=== PATIENT | female | born 1970 | race American Indian/Alaskan Native ===

== ENCOUNTER 2024-04-20 21:52 | Inpatient (IN) | payer SELFPAY ==
--- NOTE | ~2024-04-20 | CT_ITS ---
EXAMINATION: CT ABDOMEN AND PELVIS WITH CONTRAST CLINICAL INFORMATION: Abdominal pain. COMPARISON: None available. TECHNIQUE: Multidetector volumetric images were obtained from the superior aspect of the liver through the pubic symphysis following administration 85 mL of Omnipaque 350 intravenous contrast. Sagittal and coronal reformatted images were obtained on the technologist's workstation. Oral contrast: No This CT examination was performed using dose optimization techniques as appropriate, variously including the following: *Automated exposure control *Adjustment of mA and/or kV according to patient size (this includes techniques or standardized protocols for targeted exams where dose is matched to indication/reason for exam; i.e. extremities or head) *Use of iterative reconstruction technique DLP: 372 mGy-cm FINDINGS: LUNG BASES: The visualized lung bases are unremarkable. LIVER, GALLBLADDER, AND BILIARY TREE: The liver is normal in size, shape, and attenuation. No focal hepatic lesion or biliary ductal dilatation is present. The gallbladder is unremarkable with no evidence of radiopaque gallstones, gallbladder wall thickening, or obvious pericholecystic inflammatory changes. PANCREAS: Unremarkable. SPLEEN: Unremarkable. ADRENAL GLANDS: Unremarkable. KIDNEYS AND URETERS: The kidneys are normal in size, shape, and attenuation. No hydronephrosis, hydroureter, or calculi seen. No perinephric stranding. There is a subcentimeter left renal hypodensity likely a small cyst. BLADDER: Unremarkable. GASTROINTESTINAL TRACT: The small and large bowel are unremarkable. The appendix is not seen. ABDOMINAL WALL: No significant hernia is appreciated. LYMPH NODES: Normal. VASCULAR: Unremarkable. PELVIC VISCERA: Unremarkable. OSSEOUS STRUCTURES: Unremarkable. CT/CT abdomen pelvis w IV con IMPRESSION: No significant abnormality. Fleischner guidelines were followed.
--- NOTE | 2024-04-20 22:29 | PC.NURSE ---
Pt transferred from [facility] 2205 on a CV. Skin check performed, pt has swollen left foot and open area on left toe. Hospitalist Dr. Barnett notified. Pt currently withrawing from Fentanyl, last use was 12 grams 48 hours ago. Pt c/o body aches and nausea/vomiting, Dr. Dumont notified for orders.
[2024-04-20 22:33] VITALS: BMI 20.9
[2024-04-20 22:54] VITALS: BP 153/86; PULSE 84; TEMP 36.6; O2SAT 97
[2024-04-20] MEDS: Buprenorphine HCL 2 MG TAB.SUBL 4 MG SUBLINGUAL (23:50)
[2024-04-20] MEDS: hydrOXYzine HCL 25 MG TABLET PO (23:50)
[2024-04-21] VITALS (13 sets, daily range): BP systolic 132–185; BP diastolic 78–101; PULSE 58–88; RESP 14–18; TEMP 36.4–37.2; O2SAT 98–100
--- NOTE | 2024-04-21 01:51 | PC.ADMIT ---
Nubia Gunderson is a 53yo female admitted from [facility] 2205 on a CV. Skin check performed, pt has swollen left foot and open area on left toe. Hospitalist Dr. Barnett notified. Pt currently withrawing from Fentanyl, last use was 12 grams 48 hours ago. Pt c/o body aches and nausea/vomiting, Dr. Dumont notified for orders. Subutex 4mg one time order put in and administered at 2300. Pt was reported to have attempted suicide via intentional overdose on Fentanyl. She was triggered due to feeling depressed saying I have no one but a dog . Patient states that she has been having suicidal thoughts for 2 months. On unit admission process, Pt is alert and oriented, anxious and irritable. She was unable to cooperate with RN, saying I want something for my withdrawal and I am feeling body pains . She showered , took PRN Meds and went to bed. Pt did not sign/fill any release of information forms, my contact lists, menu and statement of understanding form. Treatment plan and safety tools initiated but yet to be signed. Pt was placed on COWS Q-shift for opiates withdrawal risks and 5 minutes check for safety.
[2024-04-21] MEDS: hydrOXYzine HCL 25 MG TABLET PO ×2 (05:33→18:11)
[2024-04-21] MEDS: cloNIDine HCL 0.1 MG TABLET PO ×3 (05:34→21:42)
--- NOTE | 2024-04-21 05:37 | PC.NURSE ---
Pt awake at 0400, c/o body pain, increase anxiety and withdrawal. V/s checked reads T-97.8, P-88, BP-181/92. On-call provider notified, he said its not withdrawal and wants RN to give PRN Clonidine0.1mg. Clonidine and Atarax given at 0530.
--- NOTE | 2024-04-21 06:57 | PC.NURSE ---
V/S rechecked at 0620 reads T-97.6, p-60, BP-154/88, R-16. Pt still requesting for Subutex, sitting calmly in the kitchen area.
--- NOTE | 2024-04-21 08:45 | P.CONHOSP_ITS ---
History of Present Illness Data of Consult Service Date: 04/21/24 Primary Care Provider: Unknown Physician HPI 53-year-old female from [place] with a history of opioid use disorder who specifically endorses Fentanyl use. She denies chronic medical issues and is admitted for management of opioid withdrawal. Her blood pressure has been elevated; she denies a history of HTN. She has been prescribed Clonidine for withdrawal and was given Subutex one time for withdrawal symptoms. She is asking for more Subutex, with her blood pressure earlier at 185/101 and a recheck at 144/80. She was a bit anxious but, for the most part, calm and cooperative. Review of Systems 2 Review of Systems: has body ache, headache, no abdominal pain, no n/v, no chest pain, all other systems reviewed and negative PMFSH Social History Household Members: None Housing: Apartment Do you presently have visiting nurse or other home services: No Patient Tobacco Use Status: Current everyday Tobacco user Tobacco use type: Cigarette Smoked in Last 30 Days: Yes e-Cigarette/Vaping Use: Never Used Patient Interested in Nicotine Replacement: Yes Second Hand Smoke Exposure: No Use of substances other than those prescribed or required for medical reasons: Yes Substance Use Type: Heroin and Opiates Substance Use Frequency: Daily Last Used Substance: Just Prior to Admission Currently Displaying Signs/Symptoms of Drug Intoxication Withdrawal: No Any prior treatment program specific to substance use: No Have you been hit, kicked, punched, or otherwise hurt by someone within the past year? If so, by whom?: No Do you feel safe in your current relationship?: No Current Relationship Is there a partner from a previous relationship who is making you feel unsafe now?: No Are you made to feel afraid or neglected: No Advance Directives: No Advance Directives Information Provided: No Do you have thoughts of harming others: None Do you have a plan to hurt others: No Plan Recently lost weight without trying: No Eating poorly because of decreased appetite: No Nutrition Risks: No Nutritional Risk Patient : No : No Poor oral hygiene: No Meds Allergies Allergy/AdvReac Type Severity Reaction Status Date / Time latex Allergy Unknown Verified 04/20/24 22:36 meperidine Allergy Unknown Verified 04/20/24 22:36 morphine Allergy Unknown Verified 04/20/24 22:36 Penicillins Allergy Unknown Verified 04/20/24 22:36 Active Medications: Current Medications Acetaminophen (Acetaminophen 325 Mg Tablet) 650 mg PO Q6H PRN PRN Reason: Headache/Pain Mild Scale (1-3) Al Hydroxide/Mg Hydroxide (Magnesium Hydrox/Alum Hydrox 30 Ml Oral.Susp) 30 ml PO Q6H PRN PRN Reason: Heartburn/Nausea Clonidine HCl (Clonidine Hcl 0.1 Mg Tablet) 0.1 mg PO Q4H PRN; Protocol PRN Reason: Palpitations Last Admin: 04/21/24 08:17 Dose: 0.1 mg Hydroxyzine HCl (Hydroxyzine Hcl 25 Mg Tablet) 25 mg PO Q6H PRN PRN Reason: Anxiety Last Admin: 04/21/24 05:33 Dose: 25 mg Magnesium Hydroxide (Milk Of Magnesia 30 Ml Oral.Susp) 30 ml PO DAILY PRN PRN Reason: Constipation Nicotine Polacrilex (Nicotine Polacrilex 2 Mg Gum) 2 mg BUCCAL Q2H PRN PRN Reason: Nicotine Cravings Ondansetron HCl (Ondansetron Odt 8 Mg Tab.Rapdis) 8 mg TRANSLINGU Q8H PRN PRN Reason: Nausea and Vomiting Trazodone HCl (Trazodone Hcl 50 Mg Tablet) 50 mg PO BEDTIME MRX1 PRN PRN Reason: Insomnia Home Medications ?Medication ?Instructions ?Recorded ?Confirmed ?Last Taken ?Type sulfamethoxazole 800 1 tab PO Q12H 04/21/24 04/21/24 Unknown History mg-trimethoprim 160 mg tablet Physical Exam 2 Vital Signs and Narrative: Vital Signs: Last Vital Signs Temp 99 F 04/21/24 08:00 Pulse 58 04/21/24 08:00 Resp 18 04/21/24 08:00 BP 185/101 H 04/21/24 08:17 Pulse Ox 100 04/21/24 08:00 O2 Del Method Room Air 04/21/24 08:00 BMI result Body Mass Index 20.9 Const: Other: Constitutional: Alert, in no distress, overweight. Mental Status: Oriented to person, place and time. Eyes: Pupils are equal, round and reactive to light. Respiratory: Clear to auscultation. No wheezing, rales or rhonchi. Cardiovascular: S1 S2 regular. No murmurs, rubs or gallops. Gastrointestinal: Abdomen soft, non-tender, non-distended. Normal bowel sounds.? Neurologic: Cranial nerves II-XII grossly intact. No focal neurological deficits. Moves all extremities spontaneously.? Skin: No rashes or lesions.? Musculoskeletal: No cyanosis or clubbing. Psychiatric: Normal mood and affect? Results Labs 04/21/24 09:04 04/21/24 09:04 Assessment and Plan (1) Opioid withdrawal: Status: Acute (2) Elevated blood pressure reading: Status: Acute Plan Pt with opioid use disorder and withdrawl -Management per Psych and addiction med -Check Urine drug screen for other substance Elevated BP--could be in part d/t withdrawal from opioid or underlying untreated HTN -Will closely observe and once adequately treated for withdrawal and BPs remains high would suggest starting Norvasc, starting with 2.5 mg daily and adjust as needed. Hypokalemia--oral K supplement Thanks, will follow as needed
[2024-04-21 09:11] LABS: MANUAL DIFF FLAG NO
[2024-04-21 09:15] LABS: Basophils Percent Auto 0.4 % (0-2); Eosinophils Absolute Auto 0.1 X10*3/uL (0.0-0.4); Eosinophils Percent Auto 0.8 % (0-4); Hematocrit 32.1 % (37.0-47.0); Hemoglobin 11.2 g/dl (12.0-16.0); Imm Gran Abs Auto 0.09 X10*3/uL (0.00-0.03); Imm Gran Pct Auto 0.8 % (0.0-0.4); Lymphocytes Absolute Auto 2.1 X10*3/uL (1.2-4.9); Lymphocytes Percent Auto 19.4 % (20-40); Mean Corpuscular HGB Conc 34.9 g/dl (31.0-35.0); Mean Corpuscular Hemoglobin 29.9 pg (27.0-33.0); Mean Corpuscular Volume 85.6 fL (80.0-98.0); Mean Platelet Volume 9.5 fL (9.4-12.3); Monocytes Absolute Auto 0.6 X10*3/uL (0.1-1.2); Monocytes Percent Auto 5.8 % (2-11); Neutrophils Absolute Auto 7.9 x10*3/uL (2.0-8.3); Neutrophils Percent Auto 72.8 % (45-73); Platelet Count 360 X10*3/uL (160-400); Red Blood Count 3.75 X10*6/uL (4.20-5.50); White Blood Count 10.9 X10*3/uL (4.8-10.8)
[2024-04-21] MEDS: Buprenorphine HCL 8 MG TAB.SUBL SUBLINGUAL ×3 (09:26→15:29)
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
[2024-04-21 09:31] LABS: Alanine Aminotransferase 9 U/L (0-31); Albumin Level 3.9 g/dL (3.5-5.0); Alkaline Phosphatase 63 U/L (39-117); Anion Gap 12 (12-20); Aspartate Amino Transferase 14 U/L (5-31); Bilirubin Total 0.5 mg/dL (0.0-1.0); Blood Urea Nitrogen 17 mg/dL (9-16); Calcium 8.6 mg/dL (8.4-10.2); Carbon Dioxide 25 mmol/L (22-29); Chloride 104 mmol/L (96-108); Cholesterol 164 mg/dL (<200); Creatinine Clr Calc Pharmacy 68.6; Estimated Glomerular Filt Rate > 60; Glucose Fasting 96 mg/dL (60-99); HDL Cholesterol 33 mg/dL (>40); LDL Cholesterol Calculated 109 mg/dL (<100); Potassium 3.1 mmol/L (3.3-5.1); Sodium 138 mmol/L (135-145); Total Protein 7.2 g/dL (6.5-8.0); Triglycerides 110 mg/dL (<150)
--- NOTE | 2024-04-21 11:04 | PC.NURSE ---
Pt BP was 185/101 at 0815, given dose of clonidine 0.1 mg early per Sheeba Mcgregor NP and Mehdi Vargas MD made aware. Addiction consult placed, medication ordered and given with positive effect.
--- NOTE | 2024-04-21 12:11 | PC.NURSE ---
Vitals rechecked appox 30 min after clonidine given, 135/78
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
[2024-04-21] MEDS: Nicotine 21 MG PATCH.TD24 TRANSDERMA (12:35)
--- NOTE | 2024-04-21 19:02 | PC.NURSE ---
Nubia refused Potassium Chloride packet. Laxmi Leigh NP made aware.
[2024-04-21] MEDS: traZODone HCL 50 MG TABLET PO (21:42)
[2024-04-21] MEDS: Prazosin HCL 1 MG CAPSULE PO (21:43)
[2024-04-22] VITALS (9 sets, daily range): BP systolic 88–166; BP diastolic 56–108; PULSE 62–97; RESP 17; TEMP 36.6–37.4; O2SAT 98
--- NOTE | 2024-04-22 | ECG_ITS ---
Test Reason : chest kelley Blood Pressure : / mmHG Vent. Rate : 073 BPM Atrial Rate : 073 BPM P-R Int : 108 ms QRS Dur : 090 ms QT Int : 404 ms P-R-T Axes : 075 068 078 degrees QTc Int : 445 ms Sinus rhythm with sinus arrhythmia with short TX Otherwise normal ECG No previous ECGs available Referred By: Dianne Barnett Electronically Signed By:Issac Jean Baptiste
--- NOTE | 2024-04-22 05:10 | PM.EVENT ---
Event Note Date of Service: 04/22/24 Event Note: Nurse reported patient having chest pain. Hemodynamically stable. Has nausea. Will obtain EKG and troponin. Time Spent With Patient Time: Total time managing care of this patient today ____ minutes.
[2024-04-22] MEDS: Ondansetron ODT 8 MG TAB.RAPDIS TRANSLINGU (05:22)
[2024-04-22] MEDS: Buprenorphine HCL 8 MG TAB.SUBL SUBLINGUAL ×2 (05:23→12:00)
[2024-04-22] MEDS: Omeprazole 20 MG CAPSULE.DR PO (05:24)
--- NOTE | 2024-04-22 05:30 | PC.NURSE ---
Addendum entered by Anthony Boone RN 04/22/24 05:42: retake of vitals at 0540 are 98.6 77 18 97% 143/79 Patient reports not feeling any better and feels like she has a temp. Hot/Cold. Original Note: Patient c/o constant sharp chest pain that doesnt radiate and doesnt increase with breathing at 0510. Both covering hospitalist as well as psychiatrist notified. Stat EKG, Labs, and ordered medications zofran and Subutex administered. Subutex was due at 0800 but allowed early administration. H.R 80, b.p 152/108. Patient about an hour earlier stated she feels like she is going through withdrawals. Currently she states she is very nauseous, has a really bad headache, and feels really bad . Will continue to monitor.
[2024-04-22] MEDS: cloNIDine HCL 0.1 MG TABLET PO ×3 (06:01→20:25)
[2024-04-22 08:29] LABS: Troponin-I High Sensitivity 5.2 ng/L (<3.5-17.0)
--- NOTE | 2024-04-22 08:30 | PC.NURSE ---
Pt BP 166/96, temp 99.3, pulse 62. Reports nausea, vomiting and chest pain on right side. EKG done on previous shift, Sinus rhythm with sinus arrhythmia with short UT. Troponin high sensitivity 5.2 Jax Tovar MD made aware. Repeat labs in 2 hours. No further reccomendations made.
--- NOTE | 2024-04-22 08:53 | P.PNPSI_ITS ---
Subjective Subjective Date of Service: 04/22/24 Reason For Visit: Major Depressive d/o Opioid dependence uncomplicat Subjective Notes: Conditional Voluntary Interim History: Pt continues to present with emesis, nausea, anxious mood, muscle aches secondary to opioid withdrawal. Consulted with chemistry specialist, Priscila Shah who recommend increasing subotex to 16mg po BID. recheck electrolytes. K was marginally low. Review of Systems Review of Systems has body ache, headache, no abdominal pain, no n/v, no chest pain, all other systems reviewed and negative Constitutional: Reports as per HPI Eyes: Reports as per HPI Reports as per HPI Cardiovascular: Reports as per HPI Respiratory: Reports as per HPI Gastrointestinal: Reports as per HPI Musculoskeletal: Reports as per HPI Skin/Breast: Reports as per HPI Reports as per HPI Psychiatric: Reports as per HPI Endocrine: Reports as per HPI Hematologic/Lymphatic: Reports as per HPI Allergic/Immunologic: Reports as per HPI Mental Status Exam Mental Status Exam Narrative: Pt is alert and oriented x 3; behavior is cooperative and calm; dressed in casual attire; mood is described as depressed ; eye contact appropriate; Speech is normal rate, volume and not pressured; thought process is organized and goal directed; Thought content is on tx; otherwise pertinent to relevant topics and without any delusional content, paranoid ideations or grandiosity; denies SI/HI/VH/AH. Diagnostics Vital Signs (24Hr): Vital Signs - 24 hr 04/21/24 10:00 04/21/24 19:58 04/21/24 20:00 Temperature 98.2 F 98.2 F Pulse Rate 67 67 Respiratory Rate 14 18 Blood Pressure 135/78 132/86 132/86 Pulse Oximetry 98 98 Oxygen Delivery Method Room Air Room Air 04/21/24 21:42 04/21/24 21:43 04/22/24 05:28 Temperature Pulse Rate 80 Respiratory Rate Blood Pressure 132/86 132/86 152/108 H Pulse Oximetry Oxygen Delivery Method 04/22/24 06:01 04/22/24 08:00 Temperature 99.3 F Pulse Rate 62 Respiratory Rate Blood Pressure 143/79 H 166/96 H Pulse Oximetry 98 Oxygen Delivery Method Room Air BMI result Body Mass Index 20.9 Labs 04/21/24 09:04 04/23/24 11:48 Labs: Laboratory Results - last 48 hr 04/21/24 04/22/24 09:04 07:58 WBC 10.9 H RBC 3.75 L Hgb 11.2 L Hct 32.1 L MCV 85.6 MCH 29.9 MCHC 34.9 RDW 13.0 Plt Count 360 MPV 9.5 Immature Gran % (Auto) 0.8 H Neut % (Auto) 72.8 Lymph % (Auto) 19.4 L Imperial % (Auto) 5.8 Eos % (Auto) 0.8 Baso % (Auto) 0.4 Lymph # (Auto) 2.1 Imperial # (Auto) 0.6 Eos # (Auto) 0.1 Baso # (Auto) 0.0 Abs Immat Gran (auto) 0.09 H Absolute Neuts (auto) 7.9 Absolute Nucleated RBC 0.000 Nucleated RBC % (auto) 0.0 Sodium 138 Potassium 3.1 L Chloride 104 Carbon Dioxide 25 Anion Gap 12 BUN 17 H Creatinine 0.75 Estim Creat Clear Calc 68.6 Estimated GFR > 60 Fasting Glucose 96 Calcium 8.6 Total Bilirubin 0.5 AST 14 ALT 9 Alkaline Phosphatase 63 Troponin I High Sens 5.2 Total Protein 7.2 Albumin 3.9 Triglycerides 110 Cholesterol 164 LDL Cholesterol, Calc 109 H HDL Cholesterol 33 L Medications Medications Current Medications Acetaminophen (Acetaminophen 325 Mg Tablet) 650 mg PO Q6H PRN PRN Reason: Headache/Pain Mild Scale (1-3) Al Hydroxide/Mg Hydroxide (Magnesium Hydrox/Alum Hydrox 30 Ml Oral.Susp) 30 ml PO Q6H PRN PRN Reason: Heartburn/Nausea Buprenorphine HCl (Buprenorphine Hcl 8 Mg Tab.Subl) 8 mg SUBLINGUAL TID@0800,1300,1800 [facility] Last Admin: 04/22/24 05:23 Dose: 8 mg Clonidine HCl (Clonidine Hcl 0.1 Mg Tablet) 0.1 mg PO TID [facility]; Protocol Last Admin: 04/22/24 06:01 Dose: 0.1 mg Duloxetine HCl (Duloxetine Hcl 20 Mg Capsule.Dr) 20 mg PO DAILY [facility] Hydroxyzine HCl (Hydroxyzine Hcl 25 Mg Tablet) 25 mg PO Q6H PRN PRN Reason: Anxiety Last Admin: 04/21/24 18:11 Dose: 25 mg Magnesium Hydroxide (Milk Of Magnesia 30 Ml Oral.Susp) 30 ml PO DAILY PRN PRN Reason: Constipation Nicotine (Nicotine 21 Mg Patch.Td24) 21 mg TRANSDERMA DAILY [facility] Last Admin: 04/21/24 12:35 Dose: 21 mg Nicotine Polacrilex (Nicotine Polacrilex 2 Mg Gum) 2 mg BUCCAL Q2H PRN PRN Reason: Nicotine Cravings Omeprazole (Omeprazole 20 Mg Capsule.Dr) 20 mg PO DAILY@0630 [facility] Last Admin: 04/22/24 05:24 Dose: 20 mg Ondansetron HCl (Ondansetron Odt 8 Mg Tab.Rapdis) 8 mg TRANSLINGU Q8H PRN PRN Reason: Nausea and Vomiting Last Admin: 04/22/24 05:22 Dose: 8 mg Prazosin HCl (Prazosin Hcl 1 Mg Capsule) 1 mg PO BEDTIME [facility]; Protocol Last Admin: 04/21/24 21:43 Dose: 1 mg Trazodone HCl (Trazodone Hcl 50 Mg Tablet) 50 mg PO BEDTIME MRX1 PRN PRN Reason: Insomnia Last Admin: 04/21/24 21:42 Dose: 50 mg Allergies Allergies Allergy/AdvReac Type Severity Reaction Status Date / Time latex Allergy Unknown Verified 04/20/24 22:36 meperidine Allergy Unknown Verified 04/20/24 22:36 morphine Allergy Unknown Verified 04/20/24 22:36 Penicillins Allergy Unknown Verified 04/20/24 22:36 Assessment & Plan Assessment & Plan (1) MDD (major depressive disorder), recurrent episode: Status: Acute Code(s): F33.9 - Major depressive disorder, recurrent, unspecified (2) PTSD (post-traumatic stress disorder): Status: Acute Code(s): F43.10 - Post-traumatic stress disorder, unspecified (3) Opioid use disorder: Status: Acute Code(s): F11.90 - Opioid use, unspecified, uncomplicated Plan Patient is a 53-year-old female with history of MDD, PTSD, opiate use disorder, who was brought in on a section 12 after a suicide attempt by trying to overdose on on fentanyl secondary to increased depression. Plan: 04/22 flexeril for muscle aches, increase subotex to 16mg po BID. monitor hydration due to ongoing emesis Reason for continued inpatient stay Substantial Risk for: inability to function Time Spent With Patient Time: Total time managing care of this patient today ____ minutes.
--- NOTE | 2024-04-22 10:26 | PC.NURSE ---
Rechecked pt's BP at 0940, 138/99 and pulse 66
[2024-04-22 11:57] LABS: Anion Gap 21 (12-20); Blood Urea Nitrogen 19 mg/dL (9-16); Calcium 8.7 mg/dL (8.4-10.2); Carbon Dioxide 20 mmol/L (22-29); Chloride 99 mmol/L (96-108); Creatinine Clr Calc Pharmacy 65.1; Estimated Glomerular Filt Rate > 60; Glucose Random 68 mg/dL (60-115); Magnesium 1.8 mg/dL (1.6-2.6); Potassium 3.5 mmol/L (3.3-5.1); Sodium 136 mmol/L (135-145)
[2024-04-22 12:00] LABS: Troponin-I High Sensitivity 4.4 ng/L (<3.5-17.0)
[2024-04-22] MEDS: Famotidine 20 MG TABLET PO ×2 (15:05→20:26)
[2024-04-22] MEDS: Cyclobenzaprine HCl 5 MG TABLET PO ×2 (15:05→20:25)
[2024-04-22] MEDS: Nicotine 21 MG PATCH.TD24 TRANSDERMA (15:13)
[2024-04-22] MEDS: Buprenorphine HCL 8 MG TAB.SUBL 16 MG SUBLINGUAL (18:52)
--- NOTE | 2024-04-22 19:05 | PC.NURSE ---
Patient requested evening dose of Buprenorphine 16mg be administered after the 30 minute +/- policy window for administration of 1800. Patient stated that she is fearful of having PM withdrawal symptoms.
[2024-04-22] MEDS: hydrOXYzine HCL 25 MG TABLET PO (20:25)
[2024-04-22] MEDS: Prazosin HCL 1 MG CAPSULE PO (20:25)
[2024-04-22] MEDS: traZODone HCL 50 MG TABLET PO (20:26)
[2024-04-22] MEDS: Lidocaine 4 % Patch ADH..PATCH 2 PATCH TRANSDERMA (20:56)
[2024-04-22] MEDS: Acetaminophen 325 MG TABLET 650 MG PO (22:21)
--- NOTE | 2024-04-23 01:28 | PC.NURSE ---
Addendum entered by Anthony Boone RN 04/23/24 05:21: patient reports feeling like she was going to pass out again this morning. She reports a hx of syncope and states this has happened before although patient is on medications that are known to drop blood pressure. Subutex held this morning d/t her current condition and soft blood pressure. Addendum entered by Anthony Boone RN 04/23/24 05:04: vitals this morning h.r 75, b.p 99/60 Original Note: patient c/o chest pain again tonight at approx 2130 while she was sitting in a chair in the [facility]. Cardiac workup administered last night unremarkable. Vital signs taken, manual b.p 88/56, h.r 90. Patient attempted to get out of chair approx 10 min later and had to lower herself to the ground because she was seeing a dark tunnel like she was going to pass out. Patient did not hit her head or fall to the ground. RN assisted patient to wheel chair and took her to her room so that she could sit on the edge of her bed to be safe. Patient did complain of increased back pain and requested tylenol which was administered. MD aware of situation. Education offered to patient to rise slowly which she states she is aware of. Patient was offered liquids which she refused. Patient blood pressure prior to med administration was 107/62 h.r 97. Patient is currently relaxed, filling out dietary menu for tomorrow. She reports eating today for first time in 5 days d/t withdrawals. Current COWS is a 4. Patient placed on high falls risk protocol and all staff aware. Patient also c/o newly found left breast nodule she states she made staff aware of daytime. Patient states she felt a pain in her left breast this morning when she rolled over in bed and discovered it. Patient reports a significant history of breast cancer in her family and her last mammogram was 2014. Patient also c/o edema, both in her face and lower extremities. RN observed her lower extremities and she has mild pitting edema bi laterally. Patient reports her roomate noticed her face to be swollen on the side she was laying down on when she woke up this morning. Will continue to monitor.
[2024-04-23] MEDS: Acetaminophen 325 MG TABLET 650 MG PO ×2 (04:59→20:20)
[2024-04-23 05:03] VITALS: BP 99/60; PULSE 75
[2024-04-23] MEDS: Omeprazole 20 MG CAPSULE.DR PO (06:02)
[2024-04-23 08:00] VITALS: BP 104/56; PULSE 65; RESP 16; TEMP 36.4; O2SAT 96
[2024-04-23] MEDS: Buprenorphine HCL 8 MG TAB.SUBL 16 MG SUBLINGUAL ×2 (10:06→18:51)
[2024-04-23] MEDS: Famotidine 20 MG TABLET PO ×2 (10:07→20:18)
[2024-04-23] MEDS: Lidocaine 4 % Patch ADH..PATCH 2 PATCH TRANSDERMA (10:08)
[2024-04-23] MEDS: DULoxetine HCl 20 MG CAPSULE.DR PO (10:08)
[2024-04-23] MEDS: Nicotine 21 MG PATCH.TD24 TRANSDERMA (10:08)
[2024-04-23] MEDS: Gabapentin 100 MG CAPSULE PO ×3 (11:18→20:19)
[2024-04-23 12:13] LABS: Anion Gap 14 (12-20); Blood Urea Nitrogen 17 mg/dL (9-16); Calcium 9.2 mg/dL (8.4-10.2); Carbon Dioxide 26 mmol/L (22-29); Chloride 101 mmol/L (96-108); Creatinine Clr Calc Pharmacy 59.8; Estimated Glomerular Filt Rate > 60; Glucose Random 117 mg/dL (60-115); Potassium 3.7 mmol/L (3.3-5.1); Sodium 137 mmol/L (135-145)
[2024-04-23] MEDS: Nicotine Polacrilex Lozenge 2 MG LOZENGE BUCCAL ×2 (17:08→20:21)
[2024-04-23 20:00] VITALS: BP 98/60; PULSE 82; RESP 18; TEMP 36.9; O2SAT 98
[2024-04-23] MEDS: hydrOXYzine HCL 25 MG TABLET PO (20:19)
[2024-04-23] MEDS: traZODone HCL 50 MG TABLET PO (20:20)
--- NOTE | 2024-04-23 21:24 | P.PNPSI_ITS ---
Subjective Subjective Date of Service: 04/23/24 Reason For Visit: Major Depressive d/o Opioid dependence uncomplicat Subjective Notes: Conditional Voluntary Interim History: Opioid withdrawal symptoms better controlled with higher dose of subotex. However, her BP this morning was low, subotex held, BP improved 107/90. clonidine dc. Pt with multiple psychosocial stressors, wanting to leave but also wanting multiple services be put in place in a rapid manner, which may not be possible. No SI/HI. future oriented. Medication Compliance: Yes Review of Systems Review of Systems has body ache, headache, no abdominal pain, no n/v, no chest pain, all other systems reviewed and negative Constitutional: Reports as per HPI Eyes: Reports as per HPI Reports as per HPI Cardiovascular: Reports as per HPI Respiratory: Reports as per HPI Gastrointestinal: Reports as per HPI Musculoskeletal: Reports as per HPI Skin/Breast: Reports as per HPI Reports as per HPI Psychiatric: Reports as per HPI Endocrine: Reports as per HPI Hematologic/Lymphatic: Reports as per HPI Allergic/Immunologic: Reports as per HPI Mental Status Exam Mental Status Exam Narrative: Pt is alert and oriented x 3; behavior is cooperative and calm; dressed in casual attire; mood is described as better ; eye contact appropriate; Speech is normal rate, volume and not pressured; thought process is organized and goal directed; Thought content is on tx; otherwise pertinent to relevant topics and without any delusional content, paranoid ideations or grandiosity; denies SI/HI/VH/AH. Diagnostics Vital Signs (24Hr): Vital Signs - 24 hr 04/22/24 22:02 04/23/24 05:03 04/23/24 08:00 Temperature 97.8 F 97.5 F Pulse Rate 90 75 65 Respiratory Rate 17 16 Blood Pressure 88/56 L 99/60 104/56 L Pulse Oximetry 98 96 Oxygen Delivery Method Room Air Room Air BMI result Body Mass Index 20.9 Labs 04/21/24 09:04 04/23/24 11:48 Labs: Laboratory Results - last 48 hr 04/22/24 04/22/24 04/22/24 07:58 07:58 11:32 Sodium 136 Potassium 3.5 Chloride 99 Carbon Dioxide 20 L Anion Gap 21 H BUN 19 H Creatinine 0.79 Estim Creat Clear Calc 65.1 Estimated GFR > 60 Random Glucose 68 Calcium 8.7 Magnesium 1.8 Troponin I High Sens Cancelled 5.2 4.4 04/23/24 11:48 Sodium 137 Potassium 3.7 Chloride 101 Carbon Dioxide 26 Anion Gap 14 BUN 17 H Creatinine 0.86 Estim Creat Clear Calc 59.8 Estimated GFR > 60 Random Glucose 117 H Calcium 9.2 Magnesium 2.0 Troponin I High Sens Medications Medications Current Medications Acetaminophen (Acetaminophen 325 Mg Tablet) 650 mg PO Q6H PRN PRN Reason: Headache/Pain Mild Scale (1-3) Last Admin: 04/23/24 20:20 Dose: 650 mg Al Hydroxide/Mg Hydroxide (Magnesium Hydrox/Alum Hydrox 30 Ml Oral.Susp) 30 ml PO Q6H PRN PRN Reason: Heartburn/Nausea Buprenorphine HCl (Buprenorphine Hcl 8 Mg Tab.Subl) 16 mg SUBLINGUAL BID@0600,1800 [facility] Last Admin: 04/23/24 18:51 Dose: 16 mg Duloxetine HCl (Duloxetine Hcl 20 Mg Capsule.) 20 mg PO DAILY [facility] Last Admin: 04/23/24 10:08 Dose: 20 mg Famotidine (Famotidine 20 Mg Tablet) 20 mg PO BID [facility] Last Admin: 04/23/24 20:18 Dose: 20 mg Gabapentin (Gabapentin 100 Mg Capsule) 100 mg PO TID [facility] Last Admin: 04/23/24 20:19 Dose: 100 mg Hydroxyzine HCl (Hydroxyzine Hcl 25 Mg Tablet) 25 mg PO Q6H PRN PRN Reason: Anxiety Last Admin: 04/23/24 20:19 Dose: 25 mg Lidocaine (Lidocaine 4 % Patch Adh..Patch) 2 patch TRANSDERMA DAILY [facility]; Protocol Last Admin: 04/23/24 10:08 Dose: 2 patch Magnesium Hydroxide (Milk Of Magnesia 30 Ml Oral.Susp) 30 ml PO DAILY PRN PRN Reason: Constipation Nicotine (Nicotine 21 Mg Patch.Td24) 21 mg TRANSDERMA DAILY [facility] Last Admin: 04/23/24 10:08 Dose: 21 mg Nicotine Polacrilex (Nicotine Polacrilex 2 Mg Gum) 2 mg BUCCAL Q2H PRN PRN Reason: Nicotine Cravings Nicotine Polacrilex (Nicotine Polacrilex Lozenge 2 Mg Lozenge) 2 mg BUCCAL Q2H PRN PRN Reason: Nicotine Cravings Last Admin: 04/23/24 20:21 Dose: 2 mg Omeprazole (Omeprazole 20 Mg Capsule.) 20 mg PO DAILY@0630 [facility] Last Admin: 04/23/24 06:02 Dose: 20 mg Ondansetron HCl (Ondansetron Odt 8 Mg Tab.Rapdis) 8 mg TRANSLINGU Q8H PRN PRN Reason: Nausea and Vomiting Last Admin: 04/22/24 05:22 Dose: 8 mg Prazosin HCl (Prazosin Hcl 1 Mg Capsule) 1 mg PO BEDTIME [facility]; Protocol Last Admin: 04/23/24 20:23 Dose: Not Given Trazodone HCl (Trazodone Hcl 50 Mg Tablet) 50 mg PO BEDTIME MRX1 PRN PRN Reason: Insomnia Last Admin: 04/23/24 20:20 Dose: 50 mg Allergies Allergies Allergy/AdvReac Type Severity Reaction Status Date / Time latex Allergy Unknown Verified 04/20/24 22:36 meperidine Allergy Unknown Verified 04/20/24 22:36 morphine Allergy Unknown Verified 04/20/24 22:36 Penicillins Allergy Unknown Verified 04/20/24 22:36 Assessment & Plan Assessment & Plan (1) MDD (major depressive disorder), recurrent episode: Status: Acute Code(s): F33.9 - Major depressive disorder, recurrent, unspecified (2) PTSD (post-traumatic stress disorder): Status: Acute Code(s): F43.10 - Post-traumatic stress disorder, unspecified (3) Opioid use disorder: Status: Acute Code(s): F11.90 - Opioid use, unspecified, uncomplicated Plan Patient is a 53-year-old female with history of MDD, PTSD, opiate use disorder, who was brought in on a section 12 after a suicide attempt by trying to overdose on on fentanyl secondary to increased depression. Plan: CV 15 minute safety checks 04/22 d/c clonidine due to hypotension. continue subotex 16mg po BID. Reason for continued inpatient stay Substantial Risk for: inability to function Time Spent With Patient Time: Total time managing care of this patient today ____ minutes.
[2024-04-24] MEDS: Buprenorphine HCL 8 MG TAB.SUBL 16 MG SUBLINGUAL ×2 (06:29→18:48)
[2024-04-24] MEDS: Omeprazole 20 MG CAPSULE.DR PO (07:03)
[2024-04-24 07:20] VITALS: BP 106/66; PULSE 71; RESP 16; TEMP 36.3; O2SAT 98
[2024-04-24] MEDS: Nicotine 21 MG PATCH.TD24 TRANSDERMA (08:30)
[2024-04-24] MEDS: Lidocaine 4 % Patch ADH..PATCH 2 PATCH TRANSDERMA (08:31)
[2024-04-24] MEDS: Gabapentin 100 MG CAPSULE PO ×3 (08:31→20:48)
[2024-04-24] MEDS: Famotidine 20 MG TABLET PO ×2 (08:31→20:49)
[2024-04-24] MEDS: DULoxetine HCl 20 MG CAPSULE.DR PO (08:31)
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
--- NOTE | 2024-04-24 13:22 | MHC.RECOVRN ---
Met with pt to follow up, provide support, and check in regarding buprenorphine. Pt awake, alert, easily engages in conversation. Reports feeling much better and is comfortable with the current dose. Pt reports she sustained a back injury in 2005 and had received fentanyl patches, oxycontin, and dilaudid until 2013 when pt informed the provider she would like to taper. Pt reports at that point the provider discontinued the medications completely and pt then began buying fentanyl. Pt reports she would buy 10 grams at a time and spread it throughout the week, using only at bedtime, IV. Pt reports it was able to sustain her through the day. Pt reports she continued this up until 2 months ago when she quit her job. Pt states I was home all day so I was able to manage my pain the way it needed to be. Pt reports she has been using 12-15 grams daily x 2 months. Pt is grateful for buprenorphine and that it has alleviated withdrawal symptoms, however, she does continue to feel some pain in her back and neck. Pt reports she is looking forward to recovery and returning home to continue making progress. Pt reports she would like to continue care with the [facility] and attend PHP. Pt denies questions or concerns at this time. Discussed with Priscila Shah APRN.
[2024-04-24] MEDS: hydrOXYzine HCL 25 MG TABLET PO (14:03)
[2024-04-24] MEDS: Acetaminophen 325 MG TABLET 650 MG PO (14:50)
[2024-04-24 20:00] VITALS: BP 96/63; PULSE 75; RESP 16; TEMP 36.7; O2SAT 97
[2024-04-24] MEDS: Prazosin HCL 1 MG CAPSULE PO (20:48)
[2024-04-24] MEDS: traZODone HCL 50 MG TABLET PO (20:49)
[2024-04-24] MEDS: Ondansetron ODT 8 MG TAB.RAPDIS TRANSLINGU (23:17)
[2024-04-25] MEDS: Ketorolac Tromethamine 30 MG/ML VIAL IM (00:48)
[2024-04-25] MEDS: Promethazine HCL 25 MG/ML VIAL 12.5 MG IM (00:49)
--- NOTE | 2024-04-25 01:11 | PC.NURSE ---
Pt c/o sharp abdominal pains and nausea, observed in a position, bowel sound slugish X4, abdomen is painful on palpation. She later vomitted moderate brownish color liquid . She reports not able to defecate since she got here 04/20 and has a HX of abdominal obstruction. V/S reads BP-136/83, P-93, T-98.3, R-16. On-call provider notified, put in order for stat hospitalist consultation and CT abdomen with contrast stat. Hospitalist consultation done, a order was put in for IM Toradol 30mg, Promethazine 12.5mg which was given, IV line placed on left arm by ICU nurses. Pt was taken to ER escorted by staff and security at 0105 and returned at 0130 and result pending. Currently no complaint of pain or nausea or vomiting.
[2024-04-25] MEDS: iohexoL 350 MG/ML 100 ML INFUS..BTL 85 ML IV (01:19)
[2024-04-25 02:47] LABS: Basophils Percent Auto 0.3 % (0-2); Eosinophils Absolute Auto 0.2 X10*3/uL (0.0-0.4); Eosinophils Percent Auto 1.5 % (0-4); Hematocrit 31.7 % (37.0-47.0); Hemoglobin 10.9 g/dl (12.0-16.0); Imm Gran Abs Auto 0.05 X10*3/uL (0.00-0.03); Imm Gran Pct Auto 0.5 % (0.0-0.4); Lymphocytes Absolute Auto 1.2 X10*3/uL (1.2-4.9); MANUAL DIFF FLAG NO; Mean Corpuscular HGB Conc 34.4 g/dl (31.0-35.0); Mean Corpuscular Hemoglobin 29.7 pg (27.0-33.0); Mean Corpuscular Volume 86.4 fL (80.0-98.0); Mean Platelet Volume 9.8 fL (9.4-12.3); Monocytes Absolute Auto 0.3 X10*3/uL (0.1-1.2); Neutrophils Absolute Auto 9.3 x10*3/uL (2.0-8.3); Neutrophils Percent Auto 83.7 % (45-73); Platelet Count 305 X10*3/uL (160-400); Red Blood Count 3.67 X10*6/uL (4.20-5.50); Red Cell Distribution Width 13.1 % (11.0-16.0); White Blood Count 11.1 X10*3/uL (4.8-10.8)
--- NOTE | 2024-04-25 03:03 | HO.PM.IMCN ---
History of Present Illness Data of Consult Service Date: 04/25/24 Requesting physician: Manny Neal Primary Care Provider: Unknown Physician HPI Reason for consult: Abdominal pain Nubia Gunderson is a 53 years old woman with past medical history significant for major depressive disorder, PTSD and opiate use disorder was admitted to the psychiatric service with acute depression and suicidal ideation. I was contacted last night at 11:58 PM to let me know that patient has developed abdominal pain. Patient complained of lower abdominal pain that started around 23:30 associated with nausea and vomiting. Patient as bowel movement was 5 days ago. Patient said that she has history of bowel obstructions and has had 22 abdominal surgeries. She did not report pain with urination. Denied any acute cardiopulmonary symptoms. According to chart review patient does use fentanyl and heroin and was started on Suboxone by additional medicine service. Review of Systems Review of Systems: Yes Unobtainable due to mental condition PMFSH Social History Household Members: None Housing: Apartment Do you presently have visiting nurse or other home services: No Patient Tobacco Use Status: Current everyday Tobacco user Tobacco use type: Cigarette Smoked in Last 30 Days: Yes e-Cigarette/Vaping Use: Never Used Patient Interested in Nicotine Replacement: Yes Second Hand Smoke Exposure: No Use of substances other than those prescribed or required for medical reasons: Yes Substance Use Type: Heroin and Opiates Substance Use Frequency: Daily Last Used Substance: Just Prior to Admission Currently Displaying Signs/Symptoms of Drug Intoxication Withdrawal: No Any prior treatment program specific to substance use: No Have you been hit, kicked, punched, or otherwise hurt by someone within the past year? If so, by whom?: No Do you feel safe in your current relationship?: No Current Relationship Is there a partner from a previous relationship who is making you feel unsafe now?: No Are you made to feel afraid or neglected: No Advance Directives: No Advance Directives Information Provided: No Do you have thoughts of harming others: None Do you have a plan to hurt others: No Plan Recently lost weight without trying: No Eating poorly because of decreased appetite: No Nutrition Risks: No Nutritional Risk Patient : No : No Poor oral hygiene: No service: No Sexual orientation: Straight/Heterosexual Meds Allergies Allergy/AdvReac Type Severity Reaction Status Date / Time latex Allergy Unknown Verified 04/20/24 22:36 meperidine Allergy Unknown Verified 04/20/24 22:36 morphine Allergy Unknown Verified 04/20/24 22:36 Penicillins Allergy Unknown Verified 04/20/24 22:36 Active Medications: Current Medications Acetaminophen (Acetaminophen 325 Mg Tablet) 650 mg PO Q6H PRN PRN Reason: Headache/Pain Mild Scale (1-3) Last Admin: 04/24/24 14:50 Dose: 650 mg Al Hydroxide/Mg Hydroxide (Magnesium Hydrox/Alum Hydrox 30 Ml Oral.Susp) 30 ml PO Q6H PRN PRN Reason: Heartburn/Nausea Buprenorphine HCl (Buprenorphine Hcl 8 Mg Tab.Subl) 16 mg SUBLINGUAL BID@0600,1800 [facility] Last Admin: 04/24/24 18:48 Dose: 16 mg Duloxetine HCl (Duloxetine Hcl 20 Mg Capsule.Dr) 20 mg PO DAILY [facility] Last Admin: 04/24/24 08:31 Dose: 20 mg Famotidine (Famotidine 20 Mg Tablet) 20 mg PO BID [facility] Last Admin: 04/24/24 20:49 Dose: 20 mg Gabapentin (Gabapentin 100 Mg Capsule) 100 mg PO TID [facility] Last Admin: 04/24/24 20:48 Dose: 100 mg Hydroxyzine HCl (Hydroxyzine Hcl 25 Mg Tablet) 25 mg PO Q6H PRN PRN Reason: Anxiety Last Admin: 04/24/24 14:03 Dose: 25 mg Lidocaine (Lidocaine 4 % Patch Adh..Patch) 2 patch TRANSDERMA DAILY [facility]; Protocol Last Admin: 04/24/24 08:31 Dose: 2 patch Magnesium Hydroxide (Milk Of Magnesia 30 Ml Oral.Susp) 30 ml PO DAILY PRN PRN Reason: Constipation Nicotine (Nicotine 21 Mg Patch.Td24) 21 mg TRANSDERMA DAILY [facility] Last Admin: 04/24/24 08:30 Dose: 21 mg Nicotine Polacrilex (Nicotine Polacrilex 2 Mg Gum) 2 mg BUCCAL Q2H PRN PRN Reason: Nicotine Cravings Nicotine Polacrilex (Nicotine Polacrilex Lozenge 2 Mg Lozenge) 2 mg BUCCAL Q2H PRN PRN Reason: Nicotine Cravings Last Admin: 04/23/24 20:21 Dose: 2 mg Omeprazole (Omeprazole 20 Mg Capsule.Dr) 20 mg PO DAILY@0630 [facility] Last Admin: 04/24/24 07:03 Dose: 20 mg Ondansetron HCl (Ondansetron Odt 8 Mg Tab.Rapdis) 8 mg TRANSLINGU Q8H PRN PRN Reason: Nausea and Vomiting Last Admin: 04/24/24 23:17 Dose: 8 mg Prazosin HCl (Prazosin Hcl 1 Mg Capsule) 1 mg PO BEDTIME [facility]; Protocol Last Admin: 04/24/24 20:48 Dose: 1 mg Trazodone HCl (Trazodone Hcl 50 Mg Tablet) 50 mg PO BEDTIME MRX1 PRN PRN Reason: Insomnia Last Admin: 04/24/24 20:49 Dose: 50 mg Home Medications ?Medication ?Instructions ?Recorded ?Confirmed ?Last Taken ?Type sulfamethoxazole 800 1 tab PO Q12H 04/21/24 04/21/24 Unknown History mg-trimethoprim 160 mg tablet Physical Exam Vital Signs and Narrative: Vital Signs: Last Vital Signs Temp 98.1 F 04/24/24 20:00 Pulse 75 04/24/24 20:00 Resp 16 04/24/24 20:00 BP 96/63 04/24/24 20:00 Pulse Ox 97 04/24/24 20:00 O2 Del Method Room Air 04/24/24 20:00 BMI result Body Mass Index 20.9 Constitutional - Awake and Alert, in acute distress due to abdominal pain. Afebrile HEENT - PERRL, EOMI Heart - Tachycardia. No murmur. Luns - Normal lung expansion, Normal respiratory effort, No respiratory distress, CTA bilaterally Abdomen - Nondistended. Increased bowel sounds. Pelvic tenderness to palpation. No rebound. No guarding. Extremities - no calf tenderness bilaterally, no swelling Musculoskeletal - Normal inspection, normal ROM Skin - Warm/Dry Neurological - Alert & oriented x3. Psychological - Anxious affect Results Labs 04/25/24 02:38 04/23/24 11:48 Labs: Laboratory Results - last 24 hr 04/25/24 02:38 MCV 86.4 MCH 29.7 MCHC 34.4 RDW 13.1 Plt Count 305 MPV 9.8 Immature Gran % (Auto) 0.5 H Neut % (Auto) 83.7 H Lymph % (Auto) 11.0 L [place] % (Auto) 3.0 Eos % (Auto) 1.5 Baso % (Auto) 0.3 Lymph # (Auto) 1.2 [place] # (Auto) 0.3 Eos # (Auto) 0.2 Baso # (Auto) 0.0 Abs Immat Gran (auto) 0.05 H Absolute Neuts (auto) 9.3 H Absolute Nucleated RBC 0.000 Nucleated RBC % (auto) 0.0 Assessment and Plan (1) Abdominal pain: Qualifiers: Abdominal location: lower abdomen, unspecified Qualified Code(s): R10.30 - Lower abdominal pain, unspecified Status: Acute (2) Nausea and vomiting: Qualifiers: Vomiting type: unspecified Qualified Code(s): R11.2 - Nausea with vomiting, unspecified Status: Acute Plan Nubia Gunderson is a 53 y/o woman c/o: Abdominal pain, nausea and vomiting. Intra-abdominal acute pathology such as a small bowel obstruction, constipation and appendicitis versus opiate withdrawal symptoms. Abdomen pelvis CT scan with IV contrast stat. Check CBC, CMP, lactic acid, lipase, test and urinalysis. Avoid opiates for pain control. Toradol 30 mg IM x1 and Phenergan 12.5 mg IM X1.
[2024-04-25 03:14] LABS: Alanine Aminotransferase 10 U/L (0-31); Albumin Level 3.8 g/dL (3.5-5.0); Alkaline Phosphatase 55 U/L (39-117); Anion Gap 18 (12-20); Aspartate Amino Transferase 13 U/L (5-31); Bilirubin Total 0.3 mg/dL (0.0-1.0); Blood Urea Nitrogen 17 mg/dL (9-16); Calcium 8.9 mg/dL (8.4-10.2); Carbon Dioxide 23 mmol/L (22-29); Chloride 100 mmol/L (96-108); Creatinine Clr Calc Pharmacy 65.1; Estimated Glomerular Filt Rate > 60; Glucose Random 127 mg/dL (60-115); Lipase 21 U/L (8-78); Potassium 3.4 mmol/L (3.3-5.1); Sodium 138 mmol/L (135-145); Total Protein 6.3 g/dL (6.5-8.0)
--- NOTE | 2024-04-25 04:04 | PC.NURSE ---
Abdominal scan result show no obstruction or abnormality. Pt is asleep with no complaint. IV line was removed b/c it is blocked and not potent.
[2024-04-25 08:00] VITALS: BP 139/70; PULSE 89; RESP 14; TEMP 37.3; O2SAT 94
[2024-04-25] MEDS: Famotidine 20 MG TABLET PO ×2 (08:24→21:18)
[2024-04-25] MEDS: Omeprazole 20 MG CAPSULE.DR PO (08:24)
[2024-04-25] MEDS: Ondansetron ODT 8 MG TAB.RAPDIS TRANSLINGU (08:25)
[2024-04-25] MEDS: Ketorolac Tromethamine 15 MG/ML VIAL IM (08:55)
[2024-04-25 09:00] VITALS: PULSE 71
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
[2024-04-25] MEDS: Buprenorphine HCL 8 MG TAB.SUBL 16 MG SUBLINGUAL ×2 (14:11→18:59)
[2024-04-25] MEDS: Lidocaine 4 % Patch ADH..PATCH 2 PATCH TRANSDERMA (14:15)
[2024-04-25] MEDS: Nicotine 21 MG PATCH.TD24 TRANSDERMA (14:25)
[2024-04-25 15:20] LABS: MANUAL DIFF FLAG NO
[2024-04-25 15:35] LABS: Basophils Percent Auto 0.3 % (0-2); Eosinophils Percent Auto 0.2 % (0-4); Hematocrit 33.5 % (37.0-47.0); Hemoglobin 11.7 g/dl (12.0-16.0); Lymphocytes Absolute Auto 1.1 X10*3/uL (1.2-4.9); Lymphocytes Percent Auto 11.6 % (20-40); Mean Corpuscular HGB Conc 34.9 g/dl (31.0-35.0); Mean Corpuscular Hemoglobin 29.8 pg (27.0-33.0); Mean Corpuscular Volume 85.2 fL (80.0-98.0); Mean Platelet Volume 10.2 fL (9.4-12.3); Monocytes Absolute Auto 0.4 X10*3/uL (0.1-1.2); Monocytes Percent Auto 4.2 % (2-11); Neutrophils Absolute Auto 8.1 x10*3/uL (2.0-8.3); Neutrophils Percent Auto 82.7 % (45-73); Platelet Count 359 X10*3/uL (160-400); Red Blood Count 3.93 X10*6/uL (4.20-5.50); Red Cell Distribution Width 13.1 % (11.0-16.0); White Blood Count 9.8 X10*3/uL (4.8-10.8)
[2024-04-25 15:43] LABS: Anion Gap 16 (12-20); Blood Urea Nitrogen 17 mg/dL (9-16); Calcium 9.4 mg/dL (8.4-10.2); Carbon Dioxide 26 mmol/L (22-29); Chloride 101 mmol/L (96-108); Creatinine Clr Calc Pharmacy 64.3; Estimated Glomerular Filt Rate > 60; Glucose Random 99 mg/dL (60-115); Potassium 3.7 mmol/L (3.3-5.1); Sodium 139 mmol/L (135-145)
--- NOTE | 2024-04-25 16:05 | HO.WOUND ---
Wound Consult: Initial 53yr old?female admitted to [facility] Unit on 04/20/24 - See progress notes and H&P for detailed history.? Wound consult placed for Left Great Toe wound.? Patient agreeable to assessment and photo documentation.? Patient reports the wound is chronic and was approximatly a year ago when she dropped a pot on her toe. 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 She reports no recent treatment. Left Great Toe Etiology: ?Chronic Ulceration - Traumatic Wound?Present on Admission Measurements: 0.4cm x 1cm x 0.2cm Wound Bed: adherent pale yellow slough Drainage / Odor: serous fluid on dressing when removed Edges: ? irregular and epibole Marcy wound: mild swelling and mild erythema - +Pedal Pulse -? No Induration, Fluctuance noted Pain: denies pain Goals of Treatment: ? Durafiber for moisture management Recommendations: 1. Left Great Toe - Elevate lower leg at times throughout the day. Cleanse with routine showering or NS moist gauze, Pat dry. Apply Durafiber AG cover with foam dressing. Change every other day. Re-consult wound care Nurse for wound deterioration or wound changes.
[2024-04-25] MEDS: Gabapentin 100 MG CAPSULE PO ×2 (16:14→21:17)
[2024-04-25 16:23] VITALS: BP 144/87; PULSE 93; RESP 16; TEMP 37.9; O2SAT 97
[2024-04-25 16:25] VITALS: PULSE 93
[2024-04-25] MEDS: Acetaminophen 325 MG TABLET 650 MG PO (16:31)
[2024-04-25] MEDS: 0.9 % Sodium Chloride 1,000 ML 999 ML IV (18:20)
[2024-04-25 19:09] VITALS: TEMP 36.8
[2024-04-25 21:00] VITALS: BP 110/75; PULSE 104; RESP 16; TEMP 36.6; O2SAT 95
[2024-04-25] MEDS: bisacodyL 5 MG TABLET.DR 10 MG PO (21:17)
[2024-04-25] MEDS: Prazosin HCL 1 MG CAPSULE PO (21:18)
[2024-04-25] MEDS: traZODone HCL 50 MG TABLET PO (21:19)
[2024-04-26] VITALS (7 sets, daily range): BP systolic 126–172; BP diastolic 76–100; PULSE 88–108; RESP 16; TEMP 37.1–37.3; O2SAT 96–97
[2024-04-26] MEDS: Omeprazole 20 MG CAPSULE.DR PO (06:41)
[2024-04-26] MEDS: Buprenorphine HCL 8 MG TAB.SUBL 16 MG SUBLINGUAL ×2 (06:42→18:36)
--- NOTE | 2024-04-26 06:51 | PC.NURSE ---
Urine obtained. declining vaginal swab at this time ''I haven't had sex in a long time'' reports no BM after administration of dulcolax last evening. reports + abdominal pain but did not rate. returned to bed after early AM medications.
--- NOTE | 2024-04-26 06:59 | PC.NURSE ---
dsd on L great toe, placed by correspondence school teacher is intact.
[2024-04-26 07:05] LABS: Appearance Urine Cloudy; Color Urine Yellow; Glucose Urine UA Negative (Negative); Leukocyte Esterase Urine Large (3+) (Negative); Nitrite Urine Negative (Negative); Specific Gravity - Urine 1.015 (1.005-1.025); UMIC TRIGGER UACC YES; UPreg QC Valid YES; Urine Blood Negative (Negative); Urine Ketones 15 mg/dL (Negative); Urine Pregnancy NEGATIVE (NEGATIVE); Urine Protein Trace mg/dL (Neg-Trace)
[2024-04-26 07:19] LABS: Bacteria Urine None Seen (None Seen); Hyaline Casts Urine 0-2 /LPF (0-2); RBC Urine 0-2 /HPF (0-2); UACC Culture Trigger YES; WBC Urine >50 /HPF (0-5)
--- NOTE | 2024-04-26 08:36 | PM.CNGS ---
History of Present Illness Consult details Consult date: 04/26/24 Requesting physician: Poly Lacy Narrative: 53-year-old female patient admitted to the psychiatric service for major depressive disorder, PTSD and opioid use disorder with acute depression and suicidal ideation. Patient developed lower abdominal pain yesterday suddenly mainly in the left lower quadrant with associated nausea and vomiting. Patient reports numerous abdominal surgeries including oophorectomy and hysterectomy. She has had surgery for bowel obstructions and apparently has undergone a bowel resection at an outside institution. She reports her last bowel movement was approximately 6 days ago. This morning her abdominal pain is still present however is improved. She underwent workup with laboratories which revealed a normal WBC. CT abdomen and pelvis revealed an unremarkable small-bowel and colon with a normal appendix. No evidence of bowel obstruction, abscess collection or free air. No kidney stones, gallstones, fluid collections or hernias were identified. Surgical consultation was requested for further assessment of the abdominal pain. The patient feels she needs an MRI of the abdomen as her previous problems were not diagnosed by CT scan. Review of Systems Review of Systems: Yes Unobtainable due to mental status PMFSH Social History Social History Household Members: None Housing: Apartment Do you presently have visiting nurse or other home services: No Patient Tobacco Use Status: Current everyday Tobacco user Tobacco use type: Cigarette e-Cigarette/Vaping Use: Never Used Second Hand Smoke Exposure: No Substance Use Type: Heroin and Opiates service: No Sexual orientation: Straight/Heterosexual Meds Allergies Allergy/AdvReac Type Severity Reaction Status Date / Time latex Allergy Unknown Verified 04/20/24 22:36 meperidine Allergy Unknown Verified 04/20/24 22:36 morphine Allergy Unknown Verified 04/20/24 22:36 Penicillins Allergy Unknown Verified 04/20/24 22:36 Active Medications: Current Medications Acetaminophen (Acetaminophen 325 Mg Tablet) 650 mg PO Q6H PRN PRN Reason: Headache/Pain Mild Scale (1-3) Last Admin: 04/25/24 16:31 Dose: 650 mg Al Hydroxide/Mg Hydroxide (Magnesium Hydrox/Alum Hydrox 30 Ml Oral.Susp) 30 ml PO Q6H PRN PRN Reason: Heartburn/Nausea Buprenorphine HCl (Buprenorphine Hcl 8 Mg Tab.Subl) 16 mg SUBLINGUAL BID@0600,1800 [facility] Last Admin: 04/26/24 06:42 Dose: 16 mg Duloxetine HCl (Duloxetine Hcl 20 Mg Capsule.) 20 mg PO DAILY [facility] Last Admin: 04/25/24 09:29 Dose: Not Given Famotidine (Famotidine 20 Mg Tablet) 20 mg PO BID [facility] Last Admin: 04/25/24 21:18 Dose: 20 mg Gabapentin (Gabapentin 100 Mg Capsule) 100 mg PO TID [facility] Last Admin: 04/25/24 21:17 Dose: 100 mg Hydroxyzine HCl (Hydroxyzine Hcl 25 Mg Tablet) 25 mg PO Q6H PRN PRN Reason: Anxiety Last Admin: 04/24/24 14:03 Dose: 25 mg Ketorolac Tromethamine (Ketorolac Tromethamine 15 Mg/Ml Vial) 15 mg IM ONCE PRN PRN Reason: Pain, Severe (Pain Scale 7-10) Last Admin: 04/25/24 08:55 Dose: 15 mg Lidocaine (Lidocaine 4 % Patch Adh..Patch) 2 patch TRANSDERMA DAILY [facility]; Protocol Last Admin: 04/25/24 14:15 Dose: 2 patch Magnesium Hydroxide (Milk Of Magnesia 30 Ml Oral.Susp) 30 ml PO DAILY PRN PRN Reason: Constipation Nicotine (Nicotine 21 Mg Patch.Td24) 21 mg TRANSDERMA DAILY [facility] Last Admin: 04/25/24 14:25 Dose: 21 mg Nicotine Polacrilex (Nicotine Polacrilex 2 Mg Gum) 2 mg BUCCAL Q2H PRN PRN Reason: Nicotine Cravings Nicotine Polacrilex (Nicotine Polacrilex Lozenge 2 Mg Lozenge) 2 mg BUCCAL Q2H PRN PRN Reason: Nicotine Cravings Last Admin: 04/23/24 20:21 Dose: 2 mg Omeprazole (Omeprazole 20 Mg Capsule.) 20 mg PO DAILY@0630 [facility] Last Admin: 04/26/24 06:41 Dose: 20 mg Ondansetron HCl (Ondansetron Odt 8 Mg Tab.Rapdis) 8 mg TRANSLINGU Q8H PRN PRN Reason: Nausea and Vomiting Last Admin: 04/25/24 08:25 Dose: 8 mg Prazosin HCl (Prazosin Hcl 1 Mg Capsule) 1 mg PO BEDTIME [facility]; Protocol Last Admin: 04/25/24 21:18 Dose: 1 mg Trazodone HCl (Trazodone Hcl 50 Mg Tablet) 50 mg PO BEDTIME MRX1 PRN PRN Reason: Insomnia Last Admin: 04/25/24 21:19 Dose: 50 mg Home Medications ?Medication ?Instructions ?Recorded ?Confirmed ?Last Taken ?Type sulfamethoxazole 800 1 tab PO Q12H 04/21/24 04/21/24 Unknown History mg-trimethoprim 160 mg tablet Physical Exam Vital Signs: Vital Signs: Last Vital Signs Temp 97.9 F 04/25/24 21:00 Pulse 104 H 04/25/24 21:00 Resp 16 04/25/24 21:00 BP 110/75 04/25/24 21:00 Pulse Ox 95 04/25/24 21:00 O2 Del Method Room Air 04/25/24 21:00 BMI result Body Mass Index 20.9 Const: Other: Resting comfortably in bed in no acute distress, easily arousable. HEENT: Head: Yes normocephalic and Yes atraumatic Ears: hearing grossly normal bilaterally Resp: Effort & Inspection: normal respiratory effort, no audible wheezes, no cough and no respiratory distress GI: Inspection: Yes normal to inspection Palpation (GI): Soft to palpation, Tenderness to palpation present (GI) in the LLQ, no guarding and not rigid Percussion: Yes normal to percussion Auscultation: normal bowel sounds Rectal Exam - Female: deferred Skin: Other: Warm, dry, no rash Extrem: General: Yes no clubbing, cyanosis or edema Results Labs 04/25/24 14:51 04/25/24 14:51 Labs: Abnormal lab results 04/25/24 04/26/24 Range/Units 14:51 06:47 RBC 3.93 L (4.20-5.50) X10*6/uL Hgb 11.7 L (12.0-16.0) g/dl Hct 33.5 L (37.0-47.0) % Immature Gran % (Auto) 1.0 H (0.0-0.4) % Neut % (Auto) 82.7 H (45-73) % Lymph % (Auto) 11.6 L (20-40) % Lymph # (Auto) 1.1 L (1.2-4.9) X10*3/uL Abs Immat Gran (auto) 0.10 H (0.00-0.03) X10*3/uL BUN 17 H (9-16) mg/dL Ur Leukocyte Esterase Large (3+) H (Negative) Urine WBC >50 H (0-5) /HPF Short CBC 04/25/24 Range/Units 14:51 WBC 9.8 (4.8-10.8) X10*3/uL Hgb 11.7 L (12.0-16.0) g/dl Hct 33.5 L (37.0-47.0) % Plt Count 359 (160-400) X10*3/uL BMP 04/25/24 14:51 Sodium 139 Potassium 3.7 Chloride 101 Carbon Dioxide 26 BUN 17 H Creatinine 0.80 Calcium 9.4 Urine 04/26/24 Range/Units 06:47 Urine Color Yellow Urine Appearance Cloudy Urine pH 7.0 (5.0-9.0) Ur Specific [place] 1.015 (1.005-1.025) Urine Protein Trace (Neg-Trace) mg/dL Urine Glucose (UA) Negative (Negative) mg/dL Urine Test NEGATIVE (NEGATIVE) All other labs normal. Assessment and Plan (1) Nausea and vomiting: Qualifiers: Vomiting type: unspecified Qualified Code(s): R11.2 - Nausea with vomiting, unspecified Status: Acute (2) Abdominal pain: Qualifiers: Abdominal location: lower abdomen, unspecified Qualified Code(s): R10.30 - Lower abdominal pain, unspecified Status: Acute Plan 53-year-old female patient admitted for suicidal ideation and major depression found to have abdominal pain of unknown etiology. She has a history of multiple abdominal surgeries and reports previous surgery for bowel obstructions. Review of CT abdomen and pelvis was negative for bowel obstruction or evidence of infection such as appendicitis, cholecystitis or diverticulitis. She does report constipation and should be placed on a good bowel regime including stool softeners and fiber therapy. No surgical intervention is recommended at this time. She should follow up with the primary care provider upon discharge. Procedures Date of Service Date of Service: 04/26/24
[2024-04-26] MEDS: Famotidine 20 MG TABLET PO ×2 (08:57→21:26)
[2024-04-26] MEDS: Gabapentin 100 MG CAPSULE PO ×3 (08:57→21:26)
[2024-04-26] MEDS: Lidocaine 4 % Patch ADH..PATCH 2 PATCH TRANSDERMA (08:57)
[2024-04-26] MEDS: DULoxetine HCl 20 MG CAPSULE.DR PO (08:57)
[2024-04-26] MEDS: Nicotine 21 MG PATCH.TD24 TRANSDERMA (08:58)
[2024-04-26] MEDS: bisacodyL 5 MG TABLET.DR 10 MG PO (12:18)
--- NOTE | 2024-04-26 16:34 | HO.PSYCHPN ---
Subjective Subjective Date of Service: 04/26/24 Reason For Visit: Major Depressive d/o Opioid dependence uncomplicat Subjective Notes: Conditional Voluntary Interim History: Reviewed with Dr. Lacy. Patient reports feeling depressed and anxious because I'm not feeling good physically ; pt being followed by hospitalist, please see notes. Pt retracted 3 day notice and signed another, which will be up on 05/01/24. Pt reports she doesn't want to stay here over the weekend ; pt stated, if I start to feel better on Wednesday can I leave because I have so much to do when I leave here . Patient was notified, she will be assessed daily for improvement. Patient denies SI/HI/VH/AH. Medication Compliance: Yes Attending Groups: No Review of Systems Constitutional: Reports as per HPI Eyes: Reports as per HPI Reports as per HPI Cardiovascular: Reports as per HPI Respiratory: Reports as per HPI Gastrointestinal: Reports as per HPI Musculoskeletal: Reports as per HPI Skin/Breast: Reports as per HPI Reports as per HPI Psychiatric: Reports as per HPI Endocrine: Reports as per HPI Hematologic/Lymphatic: Reports as per HPI Allergic/Immunologic: Reports as per HPI Mental Status Exam Mental Status Exam Narrative: Pt is alert and oriented x 3; behavior is cooperative and calm; dressed in casual attire; mood is described as depressed and anxious ; eye contact appropriate; Speech is normal rate, volume and not pressured; thought process is organized; Thought content is on discharge; denies SI/HI/VH/AH. Diagnostics Vital Signs (24Hr): Vital Signs - 24 hr 04/25/24 19:09 04/25/24 21:00 04/26/24 09:35 Temperature 98.3 F 97.9 F 98.9 F Pulse Rate 104 H 96 Respiratory Rate 16 16 Blood Pressure 110/75 160/88 H Pulse Oximetry 95 97 Oxygen Delivery Method Room Air Room Air 04/26/24 15:35 Temperature 99.1 F Pulse Rate 88 Respiratory Rate 16 Blood Pressure 172/100 H Pulse Oximetry 96 Oxygen Delivery Method Room Air BMI result Body Mass Index 20.9 Labs 04/25/24 14:51 04/25/24 14:51 Labs: Laboratory Results - last 48 hr 04/25/24 04/25/24 04/25/24 02:38 08:15 14:51 WBC 11.1 H 9.8 RBC 3.67 L 3.93 L Hgb 10.9 L 11.7 L Hct 31.7 L 33.5 L MCV 86.4 85.2 MCH 29.7 29.8 MCHC 34.4 34.9 RDW 13.1 13.1 Plt Count 305 359 MPV 9.8 10.2 Immature Gran % (Auto) 0.5 H 1.0 H Neut % (Auto) 83.7 H 82.7 H Lymph % (Auto) 11.0 L 11.6 L [place] % (Auto) 3.0 4.2 Eos % (Auto) 1.5 0.2 Baso % (Auto) 0.3 0.3 Lymph # (Auto) 1.2 1.1 L [place] # (Auto) 0.3 0.4 Eos # (Auto) 0.2 0.0 Baso # (Auto) 0.0 0.0 Abs Immat Gran (auto) 0.05 H 0.10 H Absolute Neuts (auto) 9.3 H 8.1 Absolute Nucleated RBC 0.000 0.000 Nucleated RBC % (auto) 0.0 0.0 Sodium 138 139 Potassium 3.4 3.7 Chloride 100 101 Carbon Dioxide 23 26 Anion Gap 18 16 BUN 17 H 17 H Creatinine 0.79 0.80 Estim Creat Clear Calc 65.1 64.3 Estimated GFR > 60 > 60 Random Glucose 127 H 99 Lactic Acid Cancelled Calcium 8.9 9.4 Total Bilirubin 0.3 AST 13 ALT 10 Alkaline Phosphatase 55 Total Protein 6.3 L Albumin 3.8 Lipase 21 Urine Color Urine Appearance Urine pH Ur Specific [place] Urine Protein Urine Glucose (UA) Urine Ketones Urine Blood Urine Nitrite Ur Leukocyte Esterase Urine RBC Urine WBC Ur Squamous Epith Cells Urine Bacteria Hyaline Casts Urine Test 04/26/24 06:47 WBC RBC Hgb Hct MCV MCH MCHC RDW Plt Count MPV Immature Gran % (Auto) Neut % (Auto) Lymph % (Auto) [place] % (Auto) Eos % (Auto) Baso % (Auto) Lymph # (Auto) [place] # (Auto) Eos # (Auto) Baso # (Auto) Abs Immat Gran (auto) Absolute Neuts (auto) Absolute Nucleated RBC Nucleated RBC % (auto) Sodium Potassium Chloride Carbon Dioxide Anion Gap BUN Creatinine Estim Creat Clear Calc Estimated GFR Random Glucose Lactic Acid Calcium Total Bilirubin AST ALT Alkaline Phosphatase Total Protein Albumin Lipase Urine Color Yellow Urine Appearance Cloudy Urine pH 7.0 Ur Specific [place] 1.015 Urine Protein Trace Urine Glucose (UA) Negative Urine Ketones 15 Urine Blood Negative Urine Nitrite Negative Ur Leukocyte Esterase Large (3+) H Urine RBC 0-2 Urine WBC >50 H Ur Squamous Epith Cells 6-10 Urine Bacteria None Seen Hyaline Casts 0-2 Urine Test NEGATIVE Imaging Radiology Impressions: ITS Impressions Abdomen/Pelvis CT 04/25/24 01:15 IMPRESSION: No significant abnormality. Fleischner guidelines were followed. Medications Medications Current Medications Acetaminophen (Acetaminophen 325 Mg Tablet) 650 mg PO Q6H PRN PRN Reason: Headache/Pain Mild Scale (1-3) Last Admin: 04/25/24 16:31 Dose: 650 mg Al Hydroxide/Mg Hydroxide (Magnesium Hydrox/Alum Hydrox 30 Ml Oral.Susp) 30 ml PO Q6H PRN PRN Reason: Heartburn/Nausea Bisacodyl (Bisacodyl 5 Mg Tablet.) 10 mg PO DAILY [facility] Last Admin: 04/26/24 12:18 Dose: 10 mg Buprenorphine HCl (Buprenorphine Hcl 8 Mg Tab.Subl) 16 mg SUBLINGUAL BID@0600,1800 [facility] Last Admin: 04/26/24 06:42 Dose: 16 mg Duloxetine HCl (Duloxetine Hcl 20 Mg Capsule.) 20 mg PO DAILY [facility] Last Admin: 04/26/24 08:57 Dose: 20 mg Famotidine (Famotidine 20 Mg Tablet) 20 mg PO BID [facility] Last Admin: 04/26/24 08:57 Dose: 20 mg Gabapentin (Gabapentin 100 Mg Capsule) 100 mg PO TID [facility] Last Admin: 04/26/24 15:19 Dose: 100 mg Hydroxyzine HCl (Hydroxyzine Hcl 25 Mg Tablet) 25 mg PO Q6H PRN PRN Reason: Anxiety Last Admin: 04/24/24 14:03 Dose: 25 mg Ketorolac Tromethamine (Ketorolac Tromethamine 15 Mg/Ml Vial) 15 mg IM ONCE PRN PRN Reason: Pain, Severe (Pain Scale 7-10) Last Admin: 04/25/24 08:55 Dose: 15 mg Lidocaine (Lidocaine 4 % Patch Adh..Patch) 2 patch TRANSDERMA DAILY [facility]; Protocol Last Admin: 04/26/24 08:57 Dose: 2 patch Magnesium Hydroxide (Milk Of Magnesia 30 Ml Oral.Susp) 30 ml PO DAILY PRN PRN Reason: Constipation Nicotine (Nicotine 21 Mg Patch.Td24) 21 mg TRANSDERMA DAILY [facility] Last Admin: 04/26/24 08:58 Dose: 21 mg Nicotine Polacrilex (Nicotine Polacrilex 2 Mg Gum) 2 mg BUCCAL Q2H PRN PRN Reason: Nicotine Cravings Nicotine Polacrilex (Nicotine Polacrilex Lozenge 2 Mg Lozenge) 2 mg BUCCAL Q2H PRN PRN Reason: Nicotine Cravings Last Admin: 04/23/24 20:21 Dose: 2 mg Omeprazole (Omeprazole 20 Mg Capsule.Dr) 20 mg PO DAILY@0630 [facility] Last Admin: 04/26/24 06:41 Dose: 20 mg Ondansetron HCl (Ondansetron Odt 8 Mg Tab.Rapdis) 8 mg TRANSLINGU Q8H PRN PRN Reason: Nausea and Vomiting Last Admin: 04/25/24 08:25 Dose: 8 mg Prazosin HCl (Prazosin Hcl 1 Mg Capsule) 1 mg PO BEDTIME [facility]; Protocol Last Admin: 04/25/24 21:18 Dose: 1 mg Trazodone HCl (Trazodone Hcl 50 Mg Tablet) 50 mg PO BEDTIME MRX1 PRN PRN Reason: Insomnia Last Admin: 04/25/24 21:19 Dose: 50 mg Allergies Allergies Allergy/AdvReac Type Severity Reaction Status Date / Time latex Allergy Unknown Verified 04/20/24 22:36 meperidine Allergy Unknown Verified 04/20/24 22:36 morphine Allergy Unknown Verified 04/20/24 22:36 Penicillins Allergy Unknown Verified 04/20/24 22:36 Assessment & Plan Assessment & Plan (1) MDD (major depressive disorder), recurrent episode: Status: Acute Code(s): F33.9 - Major depressive disorder, recurrent, unspecified (2) PTSD (post-traumatic stress disorder): Status: Acute Code(s): F43.10 - Post-traumatic stress disorder, unspecified (3) Opioid use disorder: Status: Acute Code(s): F11.90 - Opioid use, unspecified, uncomplicated Plan Patient is a 53-year-old female with history of MDD, PTSD, opiate use disorder, who was brought in on a section 12 after a suicide attempt by trying to overdose on on fentanyl secondary to increased depression. Plan: CV 15 minute safety checks 04/22 d/c clonidine due to hypotension. continue subotex 16mg po BID. 04/24: Patient reports feeling anxious due to being on the unit. Patient stated, my son told me that someone broke into my home. I'm worried about identity theft. My rental car is missing which was due on Wednesday. My dog is in daycare, which I do not know how much it is going to cost me and I do not have access to my phone. I need to go home and take care of all of this . Patient reports that she would like referrals to [facility] and outpatient psychiatric providers. She reports she plans on following up with the [facility] and is willing to make the drive even though she lives in [place] . T/W attempted to call pt's son, Isaac, but was unable to get hold of him. Patient denies SI/HI/VH/AH. Patient is hoping to be discharged prior to his 3 day notice which is up on 04/26/24. 04/25: Pt reports feeling okay ; pt reports feeling tired from having a stomach ache yesterday . Laying in bed most of shift. Patient denies SI/HI/VH/AH. 04/26: Patient reports feeling depressed and anxious because I'm not feeling good physically ; pt being followed by hospitalist, please see notes. She was also seen by general surgery; please see notes. Pt retracted 3 day notice and signed another, which will be up on 05/01/24. Pt reports she doesn't want to stay here over the weekend ; pt stated, if I start to feel better on Wednesday can I leave because I have so much to do when I leave here . Patient was notified, she will be assessed daily for improvement. Patient denies SI/HI/VH/AH. Ordered Dulcolax 10mg PO daily and Dulxolax 10mg [place] once Patient educated on: diagnosis and medication risk/benefits Reason for continued inpatient stay Substantial Risk for: med/psych decompensation Time Spent With Patient Time: Total time managing care of this patient today _20___ minutes.
[2024-04-26] MEDS: bisacodyL 10 MG SUPP.RECT PR (17:11)
[2024-04-26] MEDS: amLODIPine Besylate 2.5 MG TABLET PO (18:08)
[2024-04-26] MEDS: Acetaminophen 325 MG TABLET 650 MG PO (18:09)
[2024-04-26] MEDS: Prazosin HCL 1 MG CAPSULE PO (21:26)
[2024-04-26] MEDS: traZODone HCL 50 MG TABLET PO (21:27)
[2024-04-27] MEDS: Omeprazole 20 MG CAPSULE.DR PO (06:46)
[2024-04-27] MEDS: Buprenorphine HCL 8 MG TAB.SUBL 16 MG SUBLINGUAL ×2 (06:46→18:50)
[2024-04-27 07:00] VITALS: BMI 20.5
[2024-04-27 07:45] VITALS: BP 115/73; PULSE 113; RESP 16; TEMP 35.9; O2SAT 93
[2024-04-27] MEDS: Nicotine 21 MG PATCH.TD24 TRANSDERMA (08:34)
[2024-04-27] MEDS: Lidocaine 4 % Patch ADH..PATCH 2 PATCH TRANSDERMA (08:34)
[2024-04-27] MEDS: Famotidine 20 MG TABLET PO ×2 (08:35→22:04)
[2024-04-27] MEDS: bisacodyL 5 MG TABLET.DR 10 MG PO (08:35)
[2024-04-27] MEDS: DULoxetine HCl 20 MG CAPSULE.DR PO (08:35)
[2024-04-27] MEDS: Gabapentin 100 MG CAPSULE PO ×3 (08:35→22:03)
[2024-04-27] MEDS: amLODIPine Besylate 2.5 MG TABLET PO (08:35)
--- NOTE | 2024-04-27 11:16 | P.PNPSI_ITS ---
Subjective Subjective Date of Service: 04/27/24 Reason For Visit: Major Depressive d/o Opioid dependence uncomplicat Subjective Notes: 3 Day Interim History: Reviewed with Dr. Lacy. Patient reports feeling better today; Pt stated, my stomach feels so much better after having multiple bowel movements. I feel ready to go now . Pt reports feeling improved from when I first got here . Patient denies SI/HI/VH/AH. Pt reports she plans on following up with her outpatient providers. Medication Compliance: Yes Side effects from medications: No Attending Groups: Intermittent Review of Systems Constitutional: Reports as per HPI Eyes: Reports as per HPI Reports as per HPI Cardiovascular: Reports as per HPI Respiratory: Reports as per HPI Gastrointestinal: Reports as per HPI Musculoskeletal: Reports as per HPI Skin/Breast: Reports as per HPI Reports as per HPI Psychiatric: Reports as per HPI Endocrine: Reports as per HPI Hematologic/Lymphatic: Reports as per HPI Allergic/Immunologic: Reports as per HPI Mental Status Exam Mental Status Exam Narrative: Pt is alert and oriented x 3; behavior is cooperative and calm; dressed in casual attire; mood is described as good ; eye contact appropriate; Speech is normal rate, volume and not pressured; thought process is organized; Thought content is on discharge; denies SI/HI/VH/AH. Diagnostics Vital Signs (24Hr): Vital Signs - 24 hr 04/26/24 15:35 04/26/24 18:07 04/26/24 18:08 Temperature 99.1 F Pulse Rate 88 92 Respiratory Rate 16 Blood Pressure 172/100 H 170/100 H 170/100 H Pulse Oximetry 96 Oxygen Delivery Method Room Air 04/26/24 19:25 04/26/24 21:16 04/27/24 07:45 Temperature 98.7 F 96.7 F L Pulse Rate 108 H 90 113 H Respiratory Rate 16 16 Blood Pressure 126/90 H 127/76 115/73 Pulse Oximetry 96 93 Oxygen Delivery Method Room Air Room Air BMI result Body Mass Index 20.5 Labs 04/25/24 14:51 04/25/24 14:51 Labs: Laboratory Results - last 48 hr 04/25/24 04/25/24 04/26/24 08:15 14:51 06:47 WBC 9.8 RBC 3.93 L Hgb 11.7 L Hct 33.5 L MCV 85.2 MCH 29.8 MCHC 34.9 RDW 13.1 Plt Count 359 MPV 10.2 Immature Gran % (Auto) 1.0 H Neut % (Auto) 82.7 H Lymph % (Auto) 11.6 L [place] % (Auto) 4.2 Eos % (Auto) 0.2 Baso % (Auto) 0.3 Lymph # (Auto) 1.1 L [place] # (Auto) 0.4 Eos # (Auto) 0.0 Baso # (Auto) 0.0 Abs Immat Gran (auto) 0.10 H Absolute Neuts (auto) 8.1 Absolute Nucleated RBC 0.000 Nucleated RBC % (auto) 0.0 Sodium 139 Potassium 3.7 Chloride 101 Carbon Dioxide 26 Anion Gap 16 BUN 17 H Creatinine 0.80 Estim Creat Clear Calc 64.3 Estimated GFR > 60 Random Glucose 99 Lactic Acid Cancelled Calcium 9.4 Urine Color Yellow Urine Appearance Cloudy Urine pH 7.0 Ur Specific [place] 1.015 Urine Protein Trace Urine Glucose (UA) Negative Urine Ketones 15 Urine Blood Negative Urine Nitrite Negative Ur Leukocyte Esterase Large (3+) H Urine RBC 0-2 Urine WBC >50 H Ur Squamous Epith Cells 6-10 Urine Bacteria None Seen Hyaline Casts 0-2 Urine Test NEGATIVE Imaging Radiology Impressions: ITS Impressions Abdomen/Pelvis CT 04/25/24 01:15 IMPRESSION: No significant abnormality. Fleischner guidelines were followed. Medications Medications Current Medications Acetaminophen (Acetaminophen 325 Mg Tablet) 650 mg PO Q6H PRN PRN Reason: Headache/Pain Mild Scale (1-3) Last Admin: 04/26/24 18:09 Dose: 650 mg Al Hydroxide/Mg Hydroxide (Magnesium Hydrox/Alum Hydrox 30 Ml Oral.Susp) 30 ml PO Q6H PRN PRN Reason: Heartburn/Nausea Amlodipine Besylate (Amlodipine Besylate 2.5 Mg Tablet) 2.5 mg PO DAILY [facility]; Protocol Last Admin: 04/27/24 08:35 Dose: 2.5 mg Bisacodyl (Bisacodyl 5 Mg Tablet.) 10 mg PO DAILY [facility] Last Admin: 04/27/24 08:35 Dose: 10 mg Buprenorphine HCl (Buprenorphine Hcl 8 Mg Tab.Subl) 16 mg SUBLINGUAL BID@0600,1800 [facility] Last Admin: 04/27/24 06:46 Dose: 16 mg Duloxetine HCl (Duloxetine Hcl 20 Mg Capsule.) 20 mg PO DAILY [facility] Last Admin: 04/27/24 08:35 Dose: 20 mg Famotidine (Famotidine 20 Mg Tablet) 20 mg PO BID [facility] Last Admin: 04/27/24 08:35 Dose: 20 mg Gabapentin (Gabapentin 100 Mg Capsule) 100 mg PO TID [facility] Last Admin: 04/27/24 08:35 Dose: 100 mg Hydroxyzine HCl (Hydroxyzine Hcl 25 Mg Tablet) 25 mg PO Q6H PRN PRN Reason: Anxiety Last Admin: 04/24/24 14:03 Dose: 25 mg Ketorolac Tromethamine (Ketorolac Tromethamine 15 Mg/Ml Vial) 15 mg IM ONCE PRN PRN Reason: Pain, Severe (Pain Scale 7-10) Last Admin: 04/25/24 08:55 Dose: 15 mg Lidocaine (Lidocaine 4 % Patch Adh..Patch) 2 patch TRANSDERMA DAILY [facility]; Protocol Last Admin: 04/27/24 08:34 Dose: 2 patch Magnesium Hydroxide (Milk Of Magnesia 30 Ml Oral.Susp) 30 ml PO DAILY PRN PRN Reason: Constipation Nicotine (Nicotine 21 Mg Patch.Td24) 21 mg TRANSDERMA DAILY [facility] Last Admin: 04/27/24 08:34 Dose: 21 mg Nicotine Polacrilex (Nicotine Polacrilex 2 Mg Gum) 2 mg BUCCAL Q2H PRN PRN Reason: Nicotine Cravings Nicotine Polacrilex (Nicotine Polacrilex Lozenge 2 Mg Lozenge) 2 mg BUCCAL Q2H PRN PRN Reason: Nicotine Cravings Last Admin: 04/23/24 20:21 Dose: 2 mg Omeprazole (Omeprazole 20 Mg Capsule.Dr) 20 mg PO DAILY@0630 [facility] Last Admin: 04/27/24 06:46 Dose: 20 mg Ondansetron HCl (Ondansetron Odt 8 Mg Tab.Rapdis) 8 mg TRANSLINGU Q8H PRN PRN Reason: Nausea and Vomiting Last Admin: 04/25/24 08:25 Dose: 8 mg Prazosin HCl (Prazosin Hcl 1 Mg Capsule) 1 mg PO BEDTIME [facility]; Protocol Last Admin: 04/26/24 21:26 Dose: 1 mg Trazodone HCl (Trazodone Hcl 50 Mg Tablet) 50 mg PO BEDTIME MRX1 PRN PRN Reason: Insomnia Last Admin: 04/26/24 21:27 Dose: 50 mg Allergies Allergies Allergy/AdvReac Type Severity Reaction Status Date / Time latex Allergy Unknown Verified 04/20/24 22:36 meperidine Allergy Unknown Verified 04/20/24 22:36 morphine Allergy Unknown Verified 04/20/24 22:36 Penicillins Allergy Unknown Verified 04/20/24 22:36 Assessment & Plan Assessment & Plan (1) MDD (major depressive disorder), recurrent episode: Status: Acute Code(s): F33.9 - Major depressive disorder, recurrent, unspecified (2) PTSD (post-traumatic stress disorder): Status: Acute Code(s): F43.10 - Post-traumatic stress disorder, unspecified (3) Opioid use disorder: Status: Acute Code(s): F11.90 - Opioid use, unspecified, uncomplicated Plan Patient is a 53-year-old female with history of MDD, PTSD, opiate use disorder, who was brought in on a section 12 after a suicide attempt by trying to overdose on on fentanyl secondary to increased depression. Plan: CV 15 minute safety checks 04/22 d/c clonidine due to hypotension. continue subotex 16mg po BID. 04/24: Patient reports feeling anxious due to being on the unit. Patient stated, my son told me that someone broke into my home. I'm worried about identity theft. My rental car is missing which was due on Wednesday. My dog is in daycare, which I do not know how much it is going to cost me and I do not have access to my phone. I need to go home and take care of all of this . Patient reports that she would like referrals to [facility] and outpatient psychiatric providers. She reports she plans on following up with the [facility] and is willing to make the drive even though she lives in [place] . T/W attempted to call pt's son, Isaac, but was unable to get hold of him. Patient denies SI/HI/VH/AH. Patient is hoping to be discharged prior to his 3 day notice which is up on 04/26/24. 04/25: Pt reports feeling okay ; pt reports feeling tired from having a stomach ache yesterday . Laying in bed most of shift. Patient denies SI/HI/VH/AH. 04/26: Patient reports feeling depressed and anxious because I'm not feeling good physically ; pt being followed by hospitalist, please see notes. She was also seen by general surgery; please see notes. Pt retracted 3 day notice and signed another, which will be up on 05/01/24. Pt reports she doesn't want to stay here over the weekend ; pt stated, if I start to feel better on Wednesday can I leave because I have so much to do when I leave here . Patient was notified, she will be assessed daily for improvement. Patient denies SI/HI/VH/AH. Ordered Dulcolax 10mg PO daily and Dulxolax 10mg [place] once 04/27: Patient reports feeling better today; Pt stated, my stomach feels so much better after having multiple bowel movements. I feel ready to go now . Pt reports feeling improved from when I first got here . Patient denies SI/HI/VH/AH. Pt reports she plans on following up with her outpatient providers. Patient educated on: diagnosis, medication risk/benefits, substance abuse and therapeutic strategies Informed Consent: understands Reason for continued inpatient stay Substantial Risk for: stable for discharge Time Spent With Patient Time: Total time managing care of this patient today _20___ minutes.
[2024-04-27 21:54] VITALS: BP 97/52; PULSE 99; RESP 14; TEMP 36.3; O2SAT 94
[2024-04-27 22:01] VITALS: BP 98/59; PULSE 84; RESP 16; TEMP 36.3; O2SAT 94
[2024-04-27] MEDS: Prazosin HCL 1 MG CAPSULE PO (22:03)
[2024-04-27] MEDS: traZODone HCL 50 MG TABLET PO (22:03)
[2024-04-27] MEDS: A and D Ointment 56.7 GM TUBE 1 APPL TOPICAL (22:40)
[2024-04-28] MEDS: Omeprazole 20 MG CAPSULE.DR PO (06:18)
[2024-04-28] MEDS: Buprenorphine HCL 8 MG TAB.SUBL 16 MG SUBLINGUAL (06:20)
[2024-04-28 07:20] VITALS: BP 90/58; PULSE 78; RESP 16; TEMP 36.7; O2SAT 95
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
[2024-04-28] MEDS: Lidocaine 4 % Patch ADH..PATCH 2 PATCH TRANSDERMA (09:16)
[2024-04-28] MEDS: Nicotine 21 MG PATCH.TD24 TRANSDERMA (09:16)
[2024-04-28] MEDS: Famotidine 20 MG TABLET PO (09:17)
[2024-04-28 09:18] VITALS: BP 90/58
[2024-04-28] MEDS: DULoxetine HCl 20 MG CAPSULE.DR PO (09:18)
[2024-04-28] MEDS: Naloxone HCl Nasal TAKE HOME 4 MG SPRAY 8 MG NOSTRILALT (09:21)
[2024-04-28 09:26] VITALS: BP 90/58; PULSE 68; RESP 16; O2SAT 98
== END 2024-04-28 10:10 | disposition home or self-care (01) | DRG 751 ==
PROVIDERS: Internal Medicine; Physician Assistant; Psychiatry & Neurology Psychiatry; Social Worker; Student in an Organized Health Care Education/Training Program; Admitting Provider Registered Nurse; Responsible Provider Registered Nurse; Visit Provider Psychiatry & Neurology Psychiatry
DX: F33.9 Major depressive disorder, recurrent, unspecified (principal); R45.851 Suicidal ideations; F17.210 Nicotine dependence, cigarettes, uncomplicated; E87.6 Hypokalemia; F11.23 Opioid dependence with withdrawal; F43.10 Post-traumatic stress disorder, unspecified; Z71.6 Tobacco abuse counseling; Z91.040 Latex allergy status; Z79.899 Other long term (current) drug therapy
CPT/HCPCS: 36415; 74177; 80048; 80053; 80061; 81001; 81003; 81025; 83690; 83735; 84484; 85025; 87086; 92950; 93005; J0571; J1885; J2550; Q9967

== ENCOUNTER 2024-04-20 21:52 | Outpatient (BNV) | payer MEDICAID, SELFPAY | END 2024-04-22 05:21 | PROVIDERS: Admitting Provider Registered Nurse; Responsible Provider Registered Nurse; Visit Provider Internal Medicine Cardiovascular Disease | DX: R07.9 Chest pain, unspecified (principal) | CPT/HCPCS: 93010 ==

== ENCOUNTER → 2024-04-20 21:52 | Outpatient (BNV) | payer MEDICAID, SELFPAY | PROVIDERS: Admitting Provider Registered Nurse; Responsible Provider Registered Nurse; Visit Provider Surgery | DX: R11.2 Nausea with vomiting, unspecified (principal); R10.30 Lower abdominal pain, unspecified | CPT/HCPCS: 99222 ==

== ENCOUNTER → 2024-04-20 21:52 | Outpatient (BNV) | payer MEDICAID, SELFPAY | PROVIDERS: Admitting Provider Registered Nurse; Responsible Provider Registered Nurse; Visit Provider Social Worker | DX: F33.2 Major depressive disorder, recurrent severe without psychotic features (principal); F43.11 Post-traumatic stress disorder, acute; F11.90 Opioid use, unspecified, uncomplicated | CPT/HCPCS: 99231; 99232; 99233 ==

== ENCOUNTER → 2024-04-20 21:52 | Outpatient (BNV) | payer SELFPAY | PROVIDERS: Admitting Provider Registered Nurse; Responsible Provider Registered Nurse; Visit Provider Internal Medicine | DX: R10.30 Lower abdominal pain, unspecified (principal); R11.2 Nausea with vomiting, unspecified | CPT/HCPCS: 99222; 99429 ==

== ENCOUNTER → 2024-04-20 21:52 | Outpatient (BNV) | payer MEDICAID, SELFPAY | PROVIDERS: Admitting Provider Registered Nurse; Responsible Provider Registered Nurse; Visit Provider Nurse Practitioner Psychiatric/Mental Health | DX: F11.93 Opioid use, unspecified with withdrawal (principal); F11.90 Opioid use, unspecified, uncomplicated | CPT/HCPCS: 99222 ==

== ENCOUNTER 2024-05-10 13:04 | Outpatient (AMB) | payer OTHER, SELFPAY ==
[2024-05-10 13:56] VITALS: PULSE 95; RESP 16; O2SAT 98
--- NOTE | 2024-05-10 13:56 | A.OFFVISCC_ITS ---
Vital Signs 05/10/24 13:56 Blood Pressure Location Rt brachial Position Sitting Respiration 16 Pulse 95 Pulse Source Pulse Oximeter Pulse Oximetry (%) 98 Intake Visit Reasons: Intake Allergies latex Allergy (Verified 04/20/24 22:36) Unknown meperidine Allergy (Verified 04/20/24 22:36) Unknown morphine Allergy (Verified 04/20/24 22:36) Unknown Penicillins Allergy (Verified 04/20/24 22:36) Unknown HPI HPI Intake: Details: Patient presents for intake and follow up Seen by this technical document writer while on BH unit and started on Subtex Missed last appt Reports she was brought to ED for ?substance use Has been taking subutex 8mg BID 5-7am and 5-7pm Has tried decreasing dose Denies any substance use tearful Reports instance of pitting edema Does not have a PCP Identifies her friend and her son as supports --they are now living with her Tangential and labile during visit [facility] Medical History (Updated 05/06/24 @ 00:01 by Background Daemon) Elevated blood pressure reading Social History Household Members: None Housing: Apartment Do you presently have visiting nurse or other home services: No Patient Tobacco Use Status: Current everyday Tobacco user Tobacco use type: Cigarette e-Cigarette/Vaping Use: Never Used Second Hand Smoke Exposure: No Substance Use Type: Heroin and Opiates service: No Sexual orientation: Straight/Heterosexual Review of Systems Const Reports as per HPI Physical Exam Vital Signs: Last Vital Signs Pulse 95 05/10/24 13:56 Resp 16 05/10/24 13:56 Pulse Ox 98 05/10/24 13:56 Const General: anxious and well groomed Nutritional Appearance: average body habitus Psych Affect: Anxious affect present and Depressed mood present Thought process: Circumstantial thought process present and Tangential thought process present Assessment & Plan Assessment & Plan (1) Opioid use disorder: Code(s): F11.90 - Opioid use, unspecified, uncomplicated Category: Medical Plan: * continue subutex 8mg BID * overdose prevention discussion * follow up one week via telehealth * encouraged to continue looking for PCP in her area Medications: New hydroxyzine HCl 25 mg PO BID PRN 60 tabs 0RF anxiety trazodone 50 mg PO BEDTIME PRN 30 tabs 0RF sleep Changed From buprenorphine HCl 16 mg (2 x 8 mg) sublingual BID@0600,1800 5 days 20 tabs 0RF To buprenorphine HCl 8 mg sublingual BID 60 tabs 0RF From buprenorphine HCl 8 mg sublingual BID 60 tabs 0RF To buprenorphine HCl 16 mg (2 x 8 mg) sublingual BID 60 tabs 1RF
== END 2024-05-10 15:48 | disposition home or self-care (01) ==
PROVIDERS: Visit Provider Nurse Practitioner Psychiatric/Mental Health
DX: F11.90 Opioid use, unspecified, uncomplicated (principal)
CPT/HCPCS: 99214

== ENCOUNTER → 2024-05-10 13:04 | Outpatient (BNVA) | payer OTHER, SELFPAY | PROVIDERS: Visit Provider Nurse Practitioner Psychiatric/Mental Health | DX: F11.90 Opioid use, unspecified, uncomplicated (principal) | CPT/HCPCS: 99212 ==

== ENCOUNTER 2024-05-17 08:45 | Outpatient (AMB) | payer OTHER, SELFPAY ==
--- NOTE | 2024-05-17 08:46 | A.OFFVISCC_ITS ---
Intake Visit Reasons: Tele Allergies latex Allergy (Verified 04/20/24 22:36) Unknown meperidine Allergy (Verified 04/20/24 22:36) Unknown morphine Allergy (Verified 04/20/24 22:36) Unknown Penicillins Allergy (Verified 04/20/24 22:36) Unknown HPI HPI Tele: Details: Patient presents for follow up via telehealth Currently prescribed Subutex 16mg BID Feels better overall --appetite improved, sensory issues resolved Discussed patient's request for return to work paperwork --advised that t/w will not complete any of those forms Focused on finding PCP in the area where she lives Needs to reschedule her appts [facility] Medical History (Updated 05/06/24 @ 00:01 by Background Dariley) Elevated blood pressure reading Social History Household Members: None Housing: Apartment Do you presently have visiting nurse or other home services: No Patient Tobacco Use Status: Current everyday Tobacco user Tobacco use type: Cigarette e-Cigarette/Vaping Use: Never Used Second Hand Smoke Exposure: No Substance Use Type: Heroin and Opiates service: No Sexual orientation: Straight/Heterosexual Review of Systems Const Reports as per HPI Telehealth Telehealth Telehealth Platform: Telephone Location of provider rendering services: practice address Location of patient: address on file Patient Identification confirmed using: Name, : Yes Telehealth method: voice only Patient verbally consented to treatment: Yes Patient verbally consented to billing insurance company: Yes Minutes spent on Phone/Video with Pt.: 15 Assessment & Plan Assessment & Plan (1) Opioid use disorder: Code(s): F11.90 - Opioid use, unspecified, uncomplicated Category: Medical Plan: * continue subutex at current dose * relapse prevention discussion * follow up 2 weeks
== END 2024-05-17 09:08 | disposition home or self-care (01) ==
PROVIDERS: Visit Provider Nurse Practitioner Psychiatric/Mental Health
DX: F11.90 Opioid use, unspecified, uncomplicated (principal)
CPT/HCPCS: 99213

== ENCOUNTER → 2024-05-17 08:45 | Outpatient (BNVA) | payer OTHER, SELFPAY | PROVIDERS: Visit Provider Nurse Practitioner Psychiatric/Mental Health ==

== ENCOUNTER 2024-05-31 11:50 | Outpatient (AMB) | payer OTHER, SELFPAY ==
--- NOTE | 2024-05-31 08:39 | A.OFFVISCC_ITS ---
Intake Visit Reasons: Tele Allergies latex Allergy (Verified 04/20/24 22:36) Unknown meperidine Allergy (Verified 04/20/24 22:36) Unknown morphine Allergy (Verified 04/20/24 22:36) Unknown Penicillins Allergy (Verified 04/20/24 22:36) Unknown HPI HPI Tele: Details: Patient presents for follow up via telehealth Currently prescribed Subutex 16mg BID--reports difficulty picking up script from the pharacy Has cut down to 8mg TID Feels good on current dose No constipation Anxiety continues to be an issue Irritability as well [facility] Medical History (Updated 05/06/24 @ 00:01 by Background Daemon) Elevated blood pressure reading Social History Household Members: None Housing: Apartment Do you presently have visiting nurse or other home services: No Patient Tobacco Use Status: Current everyday Tobacco user Tobacco use type: Cigarette e-Cigarette/Vaping Use: Never Used Second Hand Smoke Exposure: No Substance Use Type: Heroin and Opiates service: No Sexual orientation: Straight/Heterosexual Review of Systems Const Reports as per HPI Telehealth Telehealth Telehealth Platform: Telephone Location of provider rendering services: practice address Location of patient: address on file Patient Identification confirmed using: Name, : Yes Telehealth method: voice only Patient verbally consented to treatment: Yes Minutes spent on Phone/Video with Pt.: 20 Assessment & Plan Assessment & Plan (1) Opioid use disorder: Code(s): F11.90 - Opioid use, unspecified, uncomplicated Category: Medical Plan: * new script sent in for 8mg TID * follow up 3 weeks telehealth * will send out worksheets to look at triggers and anxiety Medications: Changed From buprenorphine HCl 16 mg (2 x 8 mg) sublingual BID 60 tabs 1RF To buprenorphine HCl 8 mg sublingual TID 42 tabs 1RF
== END 2024-05-31 11:52 | disposition home or self-care (01) ==
LOC: HO.HCC 11:50
PROVIDERS: Visit Provider Nurse Practitioner Psychiatric/Mental Health
DX: F11.90 Opioid use, unspecified, uncomplicated (principal)
CPT/HCPCS: 99214

== ENCOUNTER → 2024-05-31 11:50 | Outpatient (BNVA) | payer OTHER, SELFPAY | PROVIDERS: Visit Provider Nurse Practitioner Psychiatric/Mental Health | DX: F11.90 Opioid use, unspecified, uncomplicated (principal) ==